=== PATIENT | female | born 1960 | race Caucasian/White ===

== ENCOUNTER → 2018-03-04 18:32 | Outpatient (REF) | payer OTHER, SELFPAY | LOC: LAB 18:32 | PROVIDERS: PCP Family Medicine; Visit Provider Dermatology MOHS-Micrographic Surgery | DX: Z48.817 Encounter for surgical aftercare following surgery on the skin and subcutaneous tissue (principal) | CPT/HCPCS: 87070; 87075; 87077; 87147; 87186; 87205 ==

== ENCOUNTER 2018-09-06 11:45 | Outpatient (RCR) | payer OTHER, SELFPAY ==
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
--- NOTE | 2018-04-13 10:48 | PT.OPPOC ---
Current Diagnoses Pain in left knee (04/13/18) Other specified postprocedural states (04/13/18) Provider Visit Care Team Role Provider Type Valarie Carbajal DO Primary Care Provider Physician Specialty: Family Practice Address: [address] [place] [address], [id number] Email: [email or web address] Will Haddad MD Attending Provider Non-Staff Specialty: Medical [facility] [place], [address] Email: Plan Of Care PT-OP-T Assessment and Plan Start: 04/13/18 08:11 Freq: Status: Active Protocol: Document 04/13/18 08:51 [facility] (Rec: 04/13/18 10:37 [facility] [id number]) Physical Therapy Assessment Rehab Potential Rehabilitation Potential Excellent Evaluation Complexity Number of Personal Factors/Comorbidities 3 or More Number of Body Systems Impaired 4 or More Clinical Presentation at Evaluation Evolving Impairments Impairments Balance Gait Pain Posture ROM Soft Tissue Mobility Strength Goals Three Impairment ROM Short Term Goal (STG) 0-130 ROM for improved gait & functional activities STG Duration 05/27/18 Concreter Goal (LTG) Pt will be able to have complete stability through her ROM as demonstrated by ability to ascend and descend 8 in stair with good mechanics & no pain. LTG Duration 07/11/18 Two Impairment Recreational activity limits Short Term Goal (STG) Pt will be able to bike to/ from work on her electric bike . STG Duration 05/27/18 Nursing Home Goal (LTG) Pt will be able to walk her typical 5 miles and be able to start a monitored crossfit program. LTG Duration 07/14/18 One Impairment strength Short Term Goal (STG) Indep with HEP STG Duration 05/27/18 Nursing Home Goal (LTG) Pt will have 5/5 LE strength B with good core stability when tested to allow pt to return to further recreational participation. LTG Duration 07/14/18 Assessment Summary Assessment Pt presents about 4 weeks s/p L knee medial & lateral menisectomy with impaired gait patterns, dec ability to participate in recreational activities, and overall limits in her daily ambulation & activities. Pt has hx of LBP which has limited her activity in her past and is likely contributing to her movement patterns. Physical Therapy Plan Frequency and Duration Frequency of Treatment 2x/Week Duration of Treatment 3 months Plan of Care Start Date 04/13/18 Plan of Care End Date 07/14/18 Therapeutic Interventions Therapeutic Interventions Aquatic Therapy Balance Training Gait Training Home Exercise Program Joint Mobilizations Manual Therapy Neuromuscular Re-education Self-Care/Home Management Soft Tissue Mobilization Taping Therapeutic Activities Therapeutic Exercises Modalities Cold Pack/Ice Massage Electric Stimulation Hot Packs Infrared Therapy Iontophoresis Ultrasound Next Visit Focus/Plan Next Note Type Treatment Note Next Visit Plan Abdominal series exercises, bike, leg press, review HEP & expand (mini squat, abdominal series, standing hip ext), STM quads Plan of Care Dates Plan of Care Start Date 04/13/18 Plan of Care End Date 07/14/18 Please Sign and Return: I have reviewed this Plan of Care and certify that the skilled therapy services above are required to meet the patient?s needs. Physician Signature Date Printed Name and Credentials Clinical Instructor Signature Printed Name and Credentials
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
--- NOTE | 2018-06-30 14:30 | PT.OPPOC ---
Current Diagnoses Pain in left knee (06/30/18) Other specified postprocedural states (06/30/18) Provider Visit Care Team Role Provider Type Valarie Carbajal DO Primary Care Provider Physician Specialty: Family Practice Address: [address] [place] [address], [id number] Email: [email or web address] Will Haddad MD Attending Provider Non-Staff Specialty: Medical [facility] [place], [address] Email: Plan Of Care PT-OP-T Assessment and Plan Start: 04/13/18 08:11 Freq: Status: Active Protocol: Document 06/30/18 13:01 [facility] (Rec: 06/30/18 13:47 [facility] [id number]) Physical Therapy Assessment Goals Three Impairment ROM Short Term Goal (STG) 0-130 ROM for improved gait & functional activities STG Duration achieved S[employer] Folding Supervisor Goal (LTG) Pt will be able to have complete stability through her ROM as demonstrated by ability to ascend and descend 8 in stair with good mechanics & no pain. LTG Duration 08/11/18-able to do 6 in Two Impairment Recreational activity limits Short Term Goal (STG) Pt will be able to bike to/ from work on her electric bike . STG Duration 05/27/18-has not used bike [facility]dc Goal (LTG) Pt will be able to walk her typical 5 miles and be able to start a monitored crossfit program. LTG Duration 08/14/18-able to do walking 1.5 miles One Impairment strength Short Term Goal (STG) Indep with HEP STG Duration 05/27/18-achieved advancing as needed [facility]dc Goal (LTG) Pt will have 5/5 LE strength B with good core stability when tested to allow pt to return to further recreational participation. LTG Duration 08/14/18-improving Assessment Summary Assessment Pt able to improve significant with gait and required cueing for arm swing to improve push off. Improved posture with cueing. Physical Therapy Plan Frequency and Duration Frequency of Treatment 2x/Week Duration of Treatment 2 months Plan of Care Start Date 06/30/18 Plan of Care End Date 08/31/18 Therapeutic Interventions Therapeutic Interventions Aquatic Therapy Balance Training Gait Training Home Exercise Program Joint Mobilizations Manual Therapy Neuromuscular Re-education Self-Care/Home Management Soft Tissue Mobilization Taping Therapeutic Activities Therapeutic Exercises Modalities Cold Pack/Ice Massage Electric Stimulation Hot Packs Infrared Therapy Iontophoresis Ultrasound Next Visit Focus/Plan Next Note Type Treatment Note Next Visit Plan Cont to work on stairs and higher level exercise Plan of Care Dates Plan of Care Start Date 06/30/18 Plan of Care End Date 08/31/18 Please Sign and Return: I have reviewed this Plan of Care and certify that the skilled therapy services above are required to meet the patient?s needs. Physician Signature Date Printed Name and Credentials Clinical Instructor Signature Printed Name and Credentials
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
== END 2019-02-04 15:27 | disposition home or self-care (01) ==
LOC: PHYS 11:45
PROVIDERS: PCP Family Medicine; Visit Provider Orthopaedic Surgery
DX: M25.562 Pain in left knee (principal); Z98.890 Other specified postprocedural states
CPT/HCPCS: 97010; 97014; 97110; 97112; 97113; 97116; 97140; 97162; 97530; G0283

== ENCOUNTER → 2018-10-26 12:07 | Outpatient (CLI) | payer OTHER, SELFPAY ==
--- NOTE | 2018-10-26 | DI.MG.S_ITS ---
BILATERAL DIGITAL SCREENING MAMMOGRAM 3D/2D WITH CAD: 10/26/2018 CLINICAL: Routine screening. Comparison is made to exams dated: 08/24/2017 mammogram, 06/23/2016 mammogram, and 06/19/2015 mammogram - [facility]. The tissue of both breasts is heterogeneously dense. This may lower the sensitivity of mammography. Current study was also evaluated with a Computer Aided Detection (CAD) system. No significant masses, calcifications, or other findings are seen in either breast. There has been no significant interval change. IMPRESSION: NEGATIVE There is no mammographic evidence of malignancy. A 1 year screening mammogram is recommended. This exam was interpreted at Station ID: [id number]. NOTE: For mammograms, a report in lay terms will be sent to the patient. Approximately 15% of breast malignancies will not be visualized mammographically. In the management of a palpable breast mass, a negative mammogram must not discourage biopsy of a clinically suspicious lesion. Electronically Signed By: Rickey giron/everardo:10/26/2018 17:54:20 letter sent: Normal Exam ACR BI-RADS Category 1: Negative 3341F
== END ==
DX: Z12.31 Encounter for screening mammogram for malignant neoplasm of breast (principal)
CPT/HCPCS: 77063; 77067

== ENCOUNTER → 2019-05-19 12:48 | Outpatient (CLI) | payer OTHER, SELFPAY | PROVIDERS: Visit Provider Physician Assistant | DX: R30.0 Dysuria (principal) | CPT/HCPCS: 87086 ==

== ENCOUNTER → 2020-03-21 17:35 | Outpatient (CLI) | payer OTHER, SELFPAY ==
--- NOTE | 2020-03-21 18:10 | DI.MG.S_ITS ---
Patient Name: FUNMILAYO GUIDRY date: 1960 Sex: F Attending Physician: Lesley Indications: Date: 03/21/2020 18:00 At the request of: NINI RAMÍREZ Procedure: MM screening mammo BI BILATERAL DIGITAL SCREENING MAMMOGRAM 3D/2D WITH CAD: 03/21/2020 CLINICAL: Routine screening. Comparison is made to exams dated: 10/26/2018 mammogram, 08/24/2017 mammogram, and 06/23/2016 mammogram - [facility]. There are scattered fibroglandular elements in both breasts. Current study was also evaluated with a Computer Aided Detection (CAD) system. No significant masses, calcifications, or other findings are seen in either breast. There has been no significant interval change. IMPRESSION: NEGATIVE There is no mammographic evidence of malignancy. A 1 year screening mammogram is recommended. This exam was interpreted at Station ID: [id number]. NOTE: For mammograms, a report in lay terms will be sent to the patient. Approximately 15% of breast malignancies will not be visualized mammographically. In the management of a palpable breast mass, a negative mammogram must not discourage biopsy of a clinically suspicious lesion. Electronically Signed By: Samara bran/everardo:03/22/2020 10:01:43 letter sent: Normal Exam ACR BI-RADS Category 1: Negative 3341F
== END ==
PROVIDERS: Referring Provider Family Medicine; Visit Provider Family Medicine
DX: Z12.31 Encounter for screening mammogram for malignant neoplasm of breast (principal)
CPT/HCPCS: 77063; 77067

== ENCOUNTER → 2020-05-10 16:00 | Outpatient (CLI) | payer OTHER, SELFPAY | PROVIDERS: Visit Provider Physician Assistant | DX: R30.0 Dysuria (principal) | CPT/HCPCS: 87077; 87086; 87186 ==

== ENCOUNTER → 2020-07-20 10:35 | Outpatient (CLI) | payer OTHER, SELFPAY ==
[2020-07-20] MEDS: COVID-19 VACC(MODERNA-1)/PF 100 MCG/0.5 ML VIAL IM (10:41)
== END ==
PROVIDERS: Visit Provider Internal Medicine
DX: Z23 Encounter for immunization (principal)
CPT/HCPCS: 0011A; 91301

== ENCOUNTER → 2020-08-16 10:27 | Outpatient (CLI) | payer OTHER, SELFPAY ==
[2020-08-16] MEDS: COVID-19 VACC #2, MRNA(MOD) 100 MCG/0.5 ML VIAL IM (10:33)
--- NOTE | 2020-08-16 11:27 | PC.NURSE ---
@1046 pt reports feeling light-headed; ambulated with SBA to recliner with unstable gait to dizziness, apple juice provided; VS @ 1048 124/77, HR 66, 93% RA VS @ 1056 seated 117/69, HR 73, 94% RA VS @ 1105 standing 113/72, HR 73 denies dizziness Pt escorted to private vehicle with spouse, denies dizziness upon ambulation to door
== END ==
PROVIDERS: Visit Provider Internal Medicine
DX: Z23 Encounter for immunization (principal)
CPT/HCPCS: 0012A; 91301

== ENCOUNTER → 2021-05-01 15:40 | Outpatient (CLI) | payer OTHER, SELFPAY ==
--- NOTE | 2021-05-01 | DI.MG.S_ITS ---
BILATERAL DIGITAL SCREENING MAMMOGRAM 3D/2D WITH CAD: 05/01/2021 CLINICAL: Routine screening. Comparison is made to exams dated: 03/21/2020 mammogram, 10/26/2018 mammogram, 08/24/2017 mammogram, 06/23/2016 mammogram, and 06/19/2015 mammogram - [facility]. There are scattered fibroglandular elements in both breasts. Current study was also evaluated with a Computer Aided Detection (CAD) system. No significant masses, calcifications, or other findings are seen in either breast. There has been no significant interval change. IMPRESSION: NEGATIVE There is no mammographic evidence of malignancy. A 1 year screening mammogram is recommended. This exam was interpreted at Station ID: [id number]. NOTE: For mammograms, a report in lay terms will be sent to the patient. Approximately 15% of breast malignancies will not be visualized mammographically. In the management of a palpable breast mass, a negative mammogram must not discourage biopsy of a clinically suspicious lesion. Electronically Signed By: Papo riley/everardo:05/02/2021 08:56:39 letter sent: Normal Exam ACR BI-RADS Category 1: Negative [id number]
== END ==
PROVIDERS: PCP Family Medicine; Referring Provider Family Medicine; Visit Provider Family Medicine
DX: Z12.31 Encounter for screening mammogram for malignant neoplasm of breast (principal)
CPT/HCPCS: 77063; 77067

== ENCOUNTER → 2022-03-01 14:51 | Outpatient (CLI) | payer OTHER, SELFPAY | PROVIDERS: PCP Family Medicine; Visit Provider Physician Assistant | DX: N34.3 Urethral syndrome, unspecified (principal) | CPT/HCPCS: 87077; 87086; 87186 ==

== ENCOUNTER 2022-05-14 18:06 | Emergency (ER) | payer OTHER, SELFPAY ==
[2022-05-14] VITALS (15 sets, daily range): BP systolic 117–172; BP diastolic 66–90; PULSE 54–65; RESP 12–32; TEMP 36.7; O2SAT 96–99; BMI 33.2
[2022-05-14 18:55] LABS: Add Manual Diff / Slide Review NO; Basophils Absolute Auto 0 /uL (0-100); Basophils Percent Auto 0.9 % (0-2); Eosinophils Absolute Auto 100 /uL (0-450); Eosinophils Percent Auto 3.1 % (2-4); Hematocrit 42.7 % (36-46); Hemoglobin 14.7 g/dL (12.0-16.0); Lymphocytes Absolute Auto 1200 /uL (1100-4500); Mean Corpuscular HGB Conc 34.4 % (30-36); Mean Corpuscular Hemoglobin 31.5 PG (26-34); Mean Corpuscular Volume 91.3 fL (80-100); Monocytes Absolute Auto 400 /uL (0-900); Monocytes Percent Auto 8.8 % (3-14); Neutrophils Absolute Auto 2600 /uL (1500-7000); Neutrophils Percent Auto 59.2 % (50-75); Platelet Count 159 X10^3/uL (150-400); Red Blood Cell Count 4.68 X10^6/uL (4.0-5.2); Red Cell Distribution Width 13.4 % (11.6-14.8); White Blood Cell Count 4.3 X10^3/uL (4.5-11.0)
[2022-05-14 19:16] LABS: Alanine Aminotransferase 17 IU/L (<35); Albumin 4.5 g/dL (3.5-5.0); Albumin Globulin Ratio 1.3 (1.0-2.8); Alkaline Phosphatase 56 U/L (38-126); Aspartate Aminotransferase 21 IU/L (14-36); BUN Creatinine Ratio 23.1 (6-22); Bilirubin Total 0.7 mg/dL (0.2-1.3); Blood Urea Nitrogen 21 mg/dL (7-17); Calcium 9.4 mg/dL (8.4-10.2); Carbon Dioxide 26 mmol/L (22-32); Chloride 103 mmol/L (98-107); Estimated Glomerular Filt Rate > 60 mL/min (>60); Globulin 3.4 g/dL (1.7-4.1); Glucose 83 mg/dL (80-110); HEMOLYSIS < 15 (0-50); Lipase 97 U/L (23-300); Potassium 3.8 mmol/L (3.4-5.1); Sodium 138 mmol/L (137-145); Total Protein 7.9 g/dL (6.3-8.2)
--- NOTE | 2022-05-14 19:24 | ED_ITS ---
HPI - Abdominal Pain General Chief Complaint: Abdominal Pain Stated Complaint: fever/galbladder pain x1 day Time Seen by Provider: 05/14/22 18:36 Source: patient Mode of arrival: Ambulatory History of Present Illness HPI narrative: Patient is a healthy 62-year-old female who presents with right upper quadrant discomfort and nausea. She says she has been feeling good for a while she has had recurrent UTIs. She is finishing up antibiotics for that. She went her business operations coordinator today who noticed that her gallbladder may be a little inflamed. She has been persistently nauseated without vomiting. No fever chills chest pain shortness of breath or back pain. She noticed that her stools were also like colored. She was instructed by her primary to come to the ED for further evaluation Related Data Home Medications Medication Instructions Recorded Confirmed levothyroxine 13 mcg capsule 13 mcg PO DAILY 09/22/18 05/10/20 Previous Rx's Medication Instructions Recorded albuterol sulfate 90 mcg/actuation 2 puff inhalation Q4-6H PRN 10/05/19 aerosol inhaler shortness of breath or wheezing #18 grams fluticasone propionate 110 1 puff inhalation BID #12 grams 10/31/19 mcg/actuation HFA aerosol inhaler (Flovent HFA) hydrocodone 5 mg-acetaminophen 325 1 tab PO Q6H PRN pain #10 tabs 05/14/22 mg tablet ondansetron 4 mg disintegrating 4 mg PO Q8H PRN nausea and 05/14/22 tablet vomiting #10 tabs Allergies Allergy/AdvReac Type Severity Reaction Status Date / Time No Known Drug Allergies Allergy Verified 03/01/22 14:50 Review of Systems Review of Systems Narrative: GENERAL: Denies chills, fatigue, malaise, fever, sweats, travel HEENT: Denies sinus pain, ear pain, sore throat, difficulty swallowing, neck pain RESPIRATORY: Denies dyspnea, cough, wheezing, hemoptysis, sputum. CARDIOVASCULAR: Denies chest pain, palpitations, orthopnea, edema GASTROINTESTINAL: See HPI : Denies dysuria, frequency, incontinence, hematuria, urinary retention, flank pain. MUSCULOSKELETAL: Denies weakness, joint pain, or bony pain SKIN: No rash, no erythema, no pruritus NEUROLOGIC: Denies weakness, dizziness, headache, numbness, change in speech, confusion PSYCHIATRIC: No concerning psychosocial issues. 12 point review of systems is negative except for those stated above and HPI Patient History Social History Smoking Status: Never smoker Smoking Status: Never smoker alcohol intake frequency: holidays/special occasions only Exam Initial Vital Signs Initial Vital Signs: Vital Signs Temperature 98.1 F 05/14/22 18:11 Pulse Rate 64 05/14/22 18:11 Respiratory Rate 18 05/14/22 18:11 Blood Pressure 117/72 05/14/22 18:11 Pulse Oximetry 99 05/14/22 18:11 Oxygen Delivery Method 05/14/22 18:11 GENERAL: Alert pleasant 62-year-old female and in no acute distress. HEENT: Head atraumatic,EOMI, pupils reactive, face symmetric, moist mucous membranes CARDIOVASCULAR: Regular rate and rhythm without murmurs, rubs or gallops. RESPIRATORY: Breath sounds equal bilaterally, no wheezes rales or rhonchi. ABDOMEN: Soft, mild right upper quadrant pain no guarding : No CVA tenderness EXTREMITIES: Normal range of motion, no clubbing or edema. Neurovascularly intact NEUROLOGICAL: Alert and oriented x4.Normal gait and speech. SKIN: Warm, dry, no laceration, no petechiae, no rashes or lesions. Course Orders Ordered: ED Orders 05/14/22 18:33 EKG-12 Lead Stat 05/14/22 18:43 Complete Blood Count AUTO DIFF Stat Comprehensive Metabolic Panel Stat Lipase Stat 05/14/22 19:26 US abdomen limited Stat Discontinued Medications Ondansetron HCl (Ondansetron 4 Mg/2 Ml Inj) 4 mg IV NOW ONE Stop: 05/14/22 19:27 Last Admin: 05/14/22 20:23 Dose: 4 mg Documented By: DAVEY Vital Signs Vital signs: Vital Signs - 8 hr 05/14/22 19:30 05/14/22 19:41 05/14/22 19:41 Pulse Rate 59 L 60 Respiratory Rate 19 28 H Blood Pressure 143/72 H Pulse Oximetry 98 98 05/14/22 20:00 05/14/22 20:00 05/14/22 20:21 Pulse Rate 55 L Respiratory Rate 22 Blood Pressure 142/77 H 128/66 Pulse Oximetry 99 05/14/22 20:21 05/14/22 20:30 05/14/22 20:41 Pulse Rate 54 L 55 L Respiratory Rate 32 H 12 Blood Pressure 144/79 H Pulse Oximetry 96 97 05/14/22 20:41 05/14/22 21:00 05/14/22 21:07 Pulse Rate 56 L 56 L Respiratory Rate 22 17 Blood Pressure 120/71 Pulse Oximetry 98 96 05/14/22 21:07 05/14/22 21:30 Pulse Rate 60 62 Respiratory Rate Blood Pressure Pulse Oximetry 96 96 MDM - Abdominal Pain Lab Data Result diagrams: 05/14/22 18:43 05/14/22 18:43 Labs: Lab Results 05/14/22 05/14/22 Range/Units 18:43 18:43 WBC 4.3 L (4.5-11.0) X10^3/uL RBC 4.68 (4.0-5.2) X10^6/uL Hgb 14.7 (12.0-16.0) g/dL Hct 42.7 (36-46) % MCV 91.3 (80-100) fL MCH 31.5 (26-34) PG MCHC 34.4 (30-36) % RDW 13.4 (11.6-14.8) % Plt Count 159 (150-400) X10^3/uL Neut % (Auto) 59.2 (50-75) % Lymph % (Auto) 28.0 (25-40) % Pender % (Auto) 8.8 (3-14) % Eos % (Auto) 3.1 (2-4) % Baso % (Auto) 0.9 (0-2) % Neut # (Auto) 2600 (7255-4335) /uL Lymph # (Auto) 1200 (1009-9961) /uL Pender # (Auto) 400 (0-900) /uL Eos # (Auto) 100 (0-450) /uL Baso # (Auto) 0 (0-100) /uL Sodium 138 (137-145) mmol/L Potassium 3.8 (3.4-5.1) mmol/L Chloride 103 (98-107) mmol/L Carbon Dioxide 26 (22-32) mmol/L BUN 21 H (7-17) mg/dL Creatinine 0.91 (0.52-1.04) mg/dL Estimated GFR > 60 (>60) mL/min BUN/Creatinine Ratio 23.1 H (6-22) Glucose 83 (80-110) mg/dL Calcium 9.4 (8.4-10.2) mg/dL Total Bilirubin 0.7 (0.2-1.3) mg/dL AST 21 (14-36) IU/L ALT 17 (<35) IU/L Alkaline Phosphatase 56 (38-126) U/L Total Protein 7.9 (6.3-8.2) g/dL Albumin 4.5 (3.5-5.0) g/dL Globulin 3.4 (1.7-4.1) g/dL Albumin/Globulin Ratio 1.3 (1.0-2.8) Lipase 97 (23-300) U/L Point of care testing: Urine Dip Bedside Urine Glucose Negative Bedside Urine Bilirubin - Negative Bedside Urine Ketone - Negative Urine Specific [place] 1.020 Bedside Urine Occult Blood - Negative Bedside Urine pH 6.0 Bedside Urine Protein - Negative Bedside Urine Urobilinogen - Negative Bedside Urine Nitrite - Negative Bedside Urine Leukocytes - Negative Esterase Imaging Data US - abdomen: Radiologist's Impression: LAYNE Zuluaga [id number] Ultrasound Report Signed Patient: Martha Veras MR#: [id number] : 1960 Acct:[id number] Age/Sex: 62 / F Date of Service: 05/14/22 Loc: ED Accession Number: [id number] ?? Procedure: US abdomen limited Ordering Provider: Mary Grace Haywood D.O. PROCEDURE: US ABDOMEN LIMITED ? INDICATIONS:? RUQ PAIN ? TECHNIQUE:? Real-time focused scanning was performed of the abdomen, with image docume ntation.? ? COMPARISON:? None. ? FINDINGS:? ? There is a large thin walled anechoic cyst within the right hepatic lobe measuring up to 9.3 x 7.6 x 8.9 cm. ? Gallbladder demonstrates a shadowing gallstone measuring up to 1.6 cm in the region of the gallbladder neck which appears nonmobile.? No gallbladder wall thickening or pericholecystic fluid.? Patient was reportedly tender on examination. ? No intra or extrahepatic biliary ductal dilatation.? The distal common bile duct was not well seen. ? Pancreas was not well visualized sonographically. ? IMPRESSION:? ? 1. Cholelithiasis, with a nonmobile stone demonstrated, but without definite evidence of acute cholecystitis. ? 2. Large hepatic cyst may represent sequelae of prior infection. ? ? Dictated by: Jose Luis Farris M.D. on 05/14/2022 at 21:09 ? ? Approved by: Jose Luis Farris M.D. on 05/14/2022 at 21:11 ? ECG Data Interpretation: Sinus rate 61 year normal 152 QRS [address] changes no T-wave inversions mild artifact noted MDM Narrative Medical decision making narrative: Patient having some mild nausea ongoing and some right upper quadrant pain today is. She is found have a non mobile gallstone but no signs of obstruction or cholelithiasis or acute cholangitis. She overall appears well. At this time recommend elective outpatient treatment and surgery. Acute coronary syndrome h as been ruled out EKG troponin are negative. Discharge Plan Departure Patient Disposition: Home Clinical Impression: Cholelithiasis Instructions: Gallstones Activity Restrictions/Additional Instructions: *You have been diagnosed with gallstones *What to do: At this time here gallbladder will need to be removed. Recommend that he follow up with surgery and have electively removed. Recommend that you follow low-fat diet as well. *Continue to take medications as directed--> SENT TO [facility] Zofran 4 mg every 8 hours if needed for nausea or vomiting [place] 1 tablet every 6 hours if needed for severe pain *Follow up with your primary care provider in 2-3 days or call [phone] *Return to ER if you should have increased pain fever persistent vomiting or any new, worsening or concerning symptoms CONTROLLED SUBSTANCE DISCHARGE (Narcotoic/benzodiazepine/Flexeril/Phenergan) 1. You have been prescribed narcotic medications, it does have acetaminophen/Tylenol/paracetamol in it, DO NOT TAKE MORE THAN 4,00mg in 24 hours of Tylenol. TRAMADOL DOES NOT CONTAIN TYLENOL 2. Please understand that we cannot provide further refills of narcotics, benzodiazepines or controlled substances through the ED and her pain management will need to be through your provider. 3. While on these medications you cannot drive or operate heavy machinery. 4. You cannot sign legal documents or perform any duties such as this. 5. As long as you're taking opiate pain medications he should also be taking a stool softener such as Colace, Dulcolax, MiraLAX or prune juice, to help avoid constipation. Prescriptions: New hydrocodone-acetaminophen 5-325 mg tablet 1 tab PO Q6H PRN (Reason: pain) Qty: 10 0RF ondansetron 4 mg tablet,disintegrating 4 mg PO Q8H PRN (Reason: nausea and vomiting) Qty: 10 0RF No Action levothyroxine 13 mcg capsule 13 mcg PO DAILY albuterol sulfate 90 mcg/actuation HFA aerosol inhaler 2 puff INHALATION Q4-6H PRN (Reason: shortness of breath or wheezing) Qty: 18 0RF Flovent HFA 110 mcg/actuation HFA aerosol inhaler 1 puff INHALATION BID Qty: 12 0RF Rx Instructions: MUST ESTABLISH WITH NEW PRIMARY CARE PHYSICIAN PRIOR TO FURTHER REFILLS Referrals: Salima Sutton MD [Primary Care Provider] - Visit Report Forms: Patient Portal/API
--- NOTE | 2022-05-14 19:26 | DI.US.S_ITS ---
PROCEDURE: US ABDOMEN LIMITED INDICATIONS: RUQ PAIN TECHNIQUE: Real-time focused scanning was performed of the abdomen, with image documentation. COMPARISON: None. FINDINGS: There is a large thin walled anechoic cyst within the right hepatic lobe measuring up to 9.3 x 7.6 x 8.9 cm. Gallbladder demonstrates a shadowing gallstone measuring up to 1.6 cm in the region of the gallbladder neck which appears nonmobile. No gallbladder wall thickening or pericholecystic fluid. Patient was reportedly tender on examination. No intra or extrahepatic biliary ductal dilatation. The distal common bile duct was not well seen. Pancreas was not well visualized sonographically. IMPRESSION: 1. Cholelithiasis, with a nonmobile stone demonstrated, but without definite evidence of acute cholecystitis. 2. Large hepatic cyst may represent sequelae of prior infection. Dictated by: Jose Luis Farris M.D. on 05/14/2022 at 21:09 Approved by: Jose Luis Farris M.D. on 05/14/2022 at 21:11
[2022-05-14] MEDS: ONDANSETRON 4 MG/2 ML INJ IV (20:23)
== END 2022-05-14 22:07 | disposition home or self-care (01) ==
PROVIDERS: Emergency Provider Emergency Medicine; PCP Family Medicine
DX: K80.20 Calculus of gallbladder without cholecystitis without obstruction (principal); R10.11 Right upper quadrant pain
CPT/HCPCS: 36415; 76705; 80053; 81003; 83690; 85025; 93005; 96374; 99284; J2405

== ENCOUNTER → 2023-05-14 06:52 | Outpatient (CLI) | payer OTHER, SELFPAY | PROVIDERS: PCP Obstetrics & Gynecology; Referring Provider Internal Medicine; Visit Provider Internal Medicine | DX: R06.00 Dyspnea, unspecified (principal); Z86.16 Personal history of COVID-19; J98.8 Other specified respiratory disorders | CPT/HCPCS: 94060; 94726; 94729 ==

== ENCOUNTER → 2023-07-28 15:36 | Outpatient (CLI) | payer OTHER, SELFPAY ==
--- NOTE | 2023-07-28 15:40 | DI.RAD.S_ITS ---
PROCEDURE: XR ANKLE LT MIN 3V INDICATIONS: Left ankle tenderness over lateral anterior malleolus TECHNIQUE: 3 views of the ankle were acquired. COMPARISON: None. FINDINGS: Bones: Partially visualized fracture in the base of the 5th metatarsal. Soft tissue swelling of the ankle. Ankle mortise is normally aligned. Soft tissues: Soft tissue swelling of the ankle. IMPRESSION: 1. Suggestion of of a fracture of the base of the 5th metatarsal, partially visualized on these images of the ankle 2. Soft tissue swelling of the ankle Dictated by: Campbell Ying M.D. on 07/28/2023 at 16:37 Approved by: Campbell Ying M.D. on 07/28/2023 at 16:40
--- NOTE | 2023-07-28 15:40 | DI.RAD.S_ITS ---
PROCEDURE: XR FOOT LT MIN 3V INDICATIONS: Left proximal, lateral foot tenderness TECHNIQUE: 3 views of the foot were acquired. COMPARISON: None. FINDINGS: Bones: Minimally displaced fracture of the base of the 5th metatarsal is noted. Soft tissues: Soft tissue swelling of the ankle noted. IMPRESSION: Minimally displaced fracture of the base of the 5th metatarsal Dictated by: Campbell Ying M.D. on 07/28/2023 at 16:40 Approved by: Campbell Ying M.D. on 07/28/2023 at 16:41
== END ==
LOC: RAD 15:38
PROVIDERS: PCP Obstetrics & Gynecology; Referring Provider Physician Assistant; Visit Provider Physician Assistant
DX: S92.355A Nondisplaced fracture of fifth metatarsal bone, left foot, initial encounter for closed fracture (principal); M25.572 Pain in left ankle and joints of left foot; M79.672 Pain in left foot; M79.89 Other specified soft tissue disorders
CPT/HCPCS: 73610; 73630

== ENCOUNTER → 2023-08-24 15:46 | Outpatient (CLI) | payer OTHER, SELFPAY ==
[2023-08-24 17:34] LABS: Influenza A - CEPHEID Flu A NEGATIVE (NEGATIVE); Influenza B - CEPHEID Flu B NEGATIVE (NEGATIVE); Respiratory Syncytial Virus Negative (Negative)
[2023-08-24 17:41] LABS: COVID-19 CEPHEID 4-PLEX PCR Negative (Negative)
== END ==
PROVIDERS: PCP Obstetrics & Gynecology; Visit Provider Nurse Practitioner Family
DX: R05.1 Acute cough (principal)
CPT/HCPCS: 0241U

== ENCOUNTER 2023-08-24 19:08 | Emergency (ER) | payer OTHER, SELFPAY ==
[2023-08-24] VITALS (11 sets, daily range): BP systolic 128–141; BP diastolic 69–86; PULSE 103–112; RESP 12–26; TEMP 37.4; O2SAT 93–97; BMI 30.5
--- NOTE | 2023-08-24 19:26 | DI.US.S_ITS ---
PROCEDURE: US PERIPH VENOUS LOW EXTREM LT INDICATIONS: CALF PAIN. RECENT FOOT FRACTURE AND RECENT TRAVEL TECHNIQUE: Real-time imaging, as well as color and pulse Doppler interrogation, were performed of the lower extremity deep veins from the inguinal ligament to the popliteal fossa, with documentation of the visualized calf veins. COMPARISON: None. FINDINGS: There is an occlusive thrombus in the superficial femoral vein and popliteal vein. Additionally, there is an occlusive thrombus in 1 of the 2 posterior tibial veins and both of the peroneal veins. IMPRESSION: Left lower extremity occlusive thrombus in the superficial femoral and popliteal vein as well as the calf veins as detailed above. Findings were communicated to ordering ED provider by Dr. Lackey at 8:50 p.m. On 08/24/2023. Approved by: Nikia Lackey M.D. on 08/24/2023 at 21:00
[2023-08-24 19:45] LABS: Add Manual Diff / Slide Review NO; Basophils Absolute Auto 0 /uL (0-100); Basophils Percent Auto 0.4 % (0-2); Eosinophils Absolute Auto 0 /uL (0-450); Eosinophils Percent Auto 0.1 % (2-4); Hematocrit 38.1 % (36-46); Hemoglobin 13.2 g/dL (12.0-16.0); Lymphocytes Absolute Auto 600 /uL (1100-4500); Lymphocytes Percent Auto 4.9 % (25-40); Mean Corpuscular HGB Conc 34.6 % (30-36); Mean Corpuscular Hemoglobin 31.3 PG (26-34); Mean Corpuscular Volume 90.6 fL (80-100); Monocytes Absolute Auto 1000 /uL (0-900); Monocytes Percent Auto 8.6 % (3-14); Neutrophils Absolute Auto 9900 /uL (1500-7000); Platelet Count 197 X10^3/uL (150-400); Red Blood Cell Count 4.21 X10^6/uL (4.0-5.2); Red Cell Distribution Width 13.3 % (11.6-14.8); White Blood Cell Count 11.5 X10^3/uL (4.5-11.0)
[2023-08-24 19:48] LABS: INR 1.4 (0.9-1.3); Prothrombin Time 16.3 SECONDS (9.4-12.5)
[2023-08-24 19:52] LABS: Lactate (Lactic Acid) 0.8 mmol/L (0.7-2.1)
[2023-08-24 19:54] LABS: Alanine Aminotransferase 15 IU/L (<35); Albumin 3.8 g/dL (3.5-5.0); Albumin Globulin Ratio 1.2 (1.0-2.8); Alkaline Phosphatase 63 U/L (38-126); Aspartate Aminotransferase 21 IU/L (14-36); BUN Creatinine Ratio 16.7 (6-22); Bilirubin Total 1.2 mg/dL (0.2-1.3); Blood Urea Nitrogen 13 mg/dL (7-17); Calcium 8.9 mg/dL (8.4-10.2); Carbon Dioxide 22 mmol/L (22-32); Chloride 102 mmol/L (98-107); Estimated Glomerular Filt Rate > 60 mL/min (>60); Globulin 3.2 g/dL (1.7-4.1); Glucose 120 mg/dL (80-110); HEMOLYSIS < 15 (0-50); Potassium 3.6 mmol/L (3.4-5.1); Sodium 134 mmol/L (137-145)
--- NOTE | 2023-08-24 19:59 | ED_ITS ---
HPI - SOB/Dyspnea <Tamar Griffin MD - Last Filed: 08/25/23 18:33> General Chief Complaint: Shortness of Breath/Dyspnea Stated Complaint: SOB/lt leg/post foot fx/states poss blood clot Time Seen by Provider: 08/24/23 19:27 Source: patient Mode of arrival: Wheelchair History of Present Illness HPI Narrative: 63-year-old female with history of insulin resistance and hypothyroidism presents by private vehicle from home for 1 week of gradually worsening left calf pain and shortness of breath. Approximately 1.5 weeks ago patient flew back to the [facility] from [facility]. She is using a walking boot on her left-hand side due to a toe fracture. She states that her left leg is throbbing and progressively more painful, and so today she decided to seek evaluation in the emergency department. Related Data Home Medications Medication Instructions Recorded Confirmed levothyroxine 13 mcg capsule 88 mcg PO DAILY 05/01/23 08/24/23 estradiol 0.01% (0.1 mg/gram) vaginal 08/24/23 08/24/23 vaginal cream tirzepatide 5 mg/0.5 mL mg SUBCUT 08/24/23 08/24/23 subcutaneous pen injector (Mounjaro) levothyroxine 88 mcg tablet 88 mcg PO DAILY 08/25/23 08/25/23 Previous Rx's Medication Instructions Recorded benzonatate 100 mg capsule 200 mg (2 x 100 mg) PO BID PRN 08/24/23 cough #20 caps Allergies Allergy/AdvReac Type Severity Reaction Status Date / Time No Known Drug Allergies Allergy Verified 08/24/23 19:19 Review of Systems <Tamar Griffin MD - Last Filed: 08/25/23 18:33> Review of Systems Narrative: Negative except as noted above Patient History <Tamar Griffin MD - Last Filed: 08/25/23 18:33> Social History Smoking Status: Never smoker Smoking Status: Never smoker alcohol intake frequency: holidays/special occasions only Exam <Tamar Griffin MD - Last Filed: 08/25/23 18:33> Initial Vital Signs Initial Vital Signs: Vital Signs Temperature 99.4 F 08/24/23 19:11 Pulse Rate 111 H 08/24/23 19:11 Respiratory Rate 16 08/24/23 19:11 Blood Pressure 128/69 08/24/23 19:11 Pulse Oximetry 94 08/24/23 19:11 Oxygen Delivery Method Room Air 08/24/23 19:11 Const: Awake, alert, no acute distress, nontoxic appearing Cardiac: Tachycardia, regular rhythm RESP: unlabored, clear bilaterally, no wheezing MSK: mildly increased size LLE compared to RLE. Sensation intact, equal Skin: Warm, Dry, intact, no rashes Neuro: AO x3, CN II-XII grossly intact, moves all extremities Psych: affect normal, mood normal, not suicidal, not homicidal <Jeremy Patricia MD - Last Filed: 08/25/23 19:05> Initial Vital Signs Initial Vital Signs: Vital Signs Temperature 99.4 F 08/24/23 19:11 Pulse Rate 111 H 08/24/23 19:11 Respiratory Rate 16 08/24/23 19:11 Blood Pressure 128/69 08/24/23 19:11 Pulse Oximetry 94 08/24/23 19:11 Oxygen Delivery Method Room Air 08/24/23 19:11 Course <Tamar Griffin MD - Last Filed: 08/25/23 18:33> Orders Ordered: ED Orders 08/25/23 13:48 COVID19 -Nasal RAPID Stat 08/25/23 14:49 EC echo limited Stat Discontinued Medications Enoxaparin Sodium (Enoxaparin 40 Mg/0.4 Ml Syringe) 140 mg 1.5 mg/kg (140 mg) SUBCUT DAILY COUNT INCLUDES THE [facility] Last Admin: 08/24/23 22:58 Dose: 140 mg Documented By: MONTY Enoxaparin Sodium (Enoxaparin 100 Mg/Ml Syringe) 90 mg SUBCUT Q12H COUNT INCLUDES THE [facility] Last Admin: 08/25/23 09:45 Dose: Not Given Documented By: RLS Enoxaparin Sodium (Enoxaparin 100 Mg/Ml Syringe) 90 mg SUBCUT Q12H COUNT INCLUDES THE [facility] Last Admin: 08/25/23 09:39 Dose: 90 mg Documented By: AGUS Heparin Sodium (Porcine) (Heparin 5,000 Unit/Ml Vial) 7,500 unit 80 unit/kg (7500 unit) IV NOW ONE Stop: 08/24/23 20:46 Last Admin: 08/24/23 20:59 Dose: 7,500 unit Documented By: MONTY Heparin Sodium/Dextrose (Heparin Drip) 25,000 unit in 500 mls @ 22.535 mls/hr IV CONT AVELINO; Protocol Last Titration: 08/25/23 10:04 Dose: Infused Documented By: AGUS Co-signed By: JUNA DIEGO Titration: 08/24/23 22:22 Dose: 0 units/kg/hr, 0 mls/hr Documented By: MONTY Co-signed By: NABEEL Admin: 08/24/23 20:59 Dose: 12 units/kg/hr, 22.535 mls/hr Documented By: BB Co-signed By: AGUS(2) Sodium Chloride (Normal Saline 0.9%) 1,000 mls @ 500 mls/hr IV BOLUS ONE Stop: 08/25/23 18:50 Last Titration: 08/25/23 17:26 Dose: 500 mls/hr Levothyroxine Sodium (Levothyroxine 88 Mcg Tablet) 88 mcg PO NOW ONE Stop: 08/25/23 13:02 Last Admin: 08/25/23 13:45 Dose: 88 mcg Documented By: SHASHA Vital Signs Vital signs: Vital Signs - 8 hr 08/25/23 11:30 08/25/23 11:30 08/25/23 12:00 Pulse Rate 96 H Respiratory Rate Blood Pressure 105/63 96/63 Pulse Oximetry 96 Oxygen Delivery Method Oxygen Flow Rate 08/25/23 12:00 08/25/23 12:30 08/25/23 12:30 Pulse Rate 96 H 92 H Respiratory Rate Blood Pressure 100/62 Pulse Oximetry 96 96 Oxygen Delivery Method Oxygen Flow Rate 08/25/23 13:00 08/25/23 13:00 08/25/23 13:30 Pulse Rate 92 H Respiratory Rate Blood Pressure 96/65 98/64 Pulse Oximetry 96 Oxygen Delivery Method Oxygen Flow Rate 08/25/23 13:30 08/25/23 14:00 08/25/23 14:00 Pulse Rate 94 H 93 H Respiratory Rate 24 Blood Pressure 97/63 Pulse Oximetry 97 96 Oxygen Delivery Method Nasal Cannula Oxygen Flow Rate 2 08/25/23 14:30 08/25/23 14:30 08/25/23 15:00 Pulse Rate 91 H 97 H Respiratory Rate Blood Pressure 102/63 Pulse Oximetry 96 96 Oxygen Delivery Method Oxygen Flow Rate 08/25/23 15:00 08/25/23 15:30 08/25/23 15:30 Pulse Rate 96 H Respiratory Rate Blood Pressure 101/65 104/71 Pulse Oximetry 97 Oxygen Delivery Method Nasal Cannula Oxygen Flow Rate 2 08/25/23 15:40 08/25/23 15:50 08/25/23 16:00 Pulse Rate 95 H 95 H Respiratory Rate Blood Pressure 88/52 L Pulse Oximetry 96 97 Oxygen Delivery Method Nasal Cannula Oxygen Flow Rate 2 08/25/23 16:00 08/25/23 16:10 08/25/23 16:14 Pulse Rate 92 H 96 H Respiratory Rate 22 Blood Pressure 103/64 Pulse Oximetry 97 97 Oxygen Delivery Method Nasal Cannula Oxygen Flow Rate 2 08/25/23 16:14 08/25/23 16:20 08/25/23 16:30 Pulse Rate 96 H 92 H 91 H Respiratory Rate Blood Pressure Pulse Oximetry 98 97 97 Oxygen Delivery Method Oxygen Flow Rate 08/25/23 16:30 08/25/23 16:40 08/25/23 16:50 Pulse Rate 91 H 95 H Respiratory Rate Blood Pressure 103/61 Pulse Oximetry 97 98 Oxygen Delivery Method Oxygen Flow Rate 08/25/23 17:00 08/25/23 17:01 08/25/23 17:01 Pulse Rate 95 H 94 H Respiratory Rate 22 Blood Pressure 96/63 Pulse Oximetry 97 96 Oxygen Delivery Method Nasal Cannula Oxygen Flow Rate 2 <Jeremy Patricia MD - Last Filed: 08/25/23 19:05> Orders Ordered: ED Orders 08/25/23 13:48 COVID19 -Nasal RAPID Stat 08/25/23 14:49 EC echo limited Stat Discontinued Medications Enoxaparin Sodium (Enoxaparin 40 Mg/0.4 Ml Syringe) 140 mg 1.5 mg/kg (140 mg) SUBCUT DAILY COUNT INCLUDES THE [facility] Last Admin: 08/24/23 22:58 Dose: 140 mg Documented By: BB Enoxaparin Sodium (Enoxaparin 100 Mg/Ml Syringe) 90 mg SUBCUT Q12H COUNT INCLUDES THE [facility] Last Admin: 08/25/23 09:45 Dose: Not Given Documented By: RLS Enoxaparin Sodium (Enoxaparin 100 Mg/Ml Syringe) 90 mg SUBCUT Q12H COUNT INCLUDES THE [facility] Last Admin: 08/25/23 09:39 Dose: 90 mg Documented By: RLS Heparin Sodium (Porcine) (Heparin 5,000 Unit/Ml Vial) 7,500 unit 80 unit/kg (7500 unit) IV NOW ONE Stop: 08/24/23 20:46 Last Admin: 08/24/23 20:59 Dose: 7,500 unit Documented By: MONTY Heparin Sodium/Dextrose (Heparin Drip) 25,000 unit in 500 mls @ 22.535 mls/hr IV CONT AVELINO; Protocol Last Titration: 08/25/23 10:04 Dose: Infused Documented By: AGUS Co-signed By: JUAN DIEGO Titration: 08/24/23 22:22 Dose: 0 units/kg/hr, 0 mls/hr Documented By: MONTY Co-signed By: NABEEL Admin: 08/24/23 20:59 Dose: 12 units/kg/hr, 22.535 mls/hr Documented By: MONTY Co-signed By: AGUS(2) Sodium Chloride (Normal Saline 0.9%) 1,000 mls @ 500 mls/hr IV BOLUS ONE Stop: 08/25/23 18:50 Last Titration: 08/25/23 17:26 Dose: 500 mls/hr Levothyroxine Sodium (Levothyroxine 88 Mcg Tablet) 88 mcg PO NOW ONE Stop: 08/25/23 13:02 Last Admin: 08/25/23 13:45 Dose: 88 mcg Documented By: SHASHA Consultations Consultation #1: D/W public housing manager at , Dr Rubin, hemodynamically stable, low O2 requirement, no RV strain, not thrombectomy candidate Vital Signs Vital signs: Vital Signs - 8 hr 08/25/23 11:30 08/25/23 11:30 08/25/23 12:00 Pulse Rate 96 H Respiratory Rate Blood Pressure 105/63 96/63 Pulse Oximetry 96 Oxygen Delivery Method Oxygen Flow Rate 08/25/23 12:00 08/25/23 12:30 08/25/23 12:30 Pulse Rate 96 H 92 H Respiratory Rate Blood Pressure 100/62 Pulse Oximetry 96 96 Oxygen Delivery Method Oxygen Flow Rate 08/25/23 13:00 08/25/23 13:00 08/25/23 13:30 Pulse Rate 92 H Respiratory Rate Blood Pressure 96/65 98/64 Pulse Oximetry 96 Oxygen Delivery Method Oxygen Flow Rate 08/25/23 13:30 08/25/23 14:00 08/25/23 14:00 Pulse Rate 94 H 93 H Respiratory Rate 24 Blood Pressure 97/63 Pulse Oximetry 97 96 Oxygen Delivery Method Nasal Cannula Oxygen Flow Rate 2 08/25/23 14:30 08/25/23 14:30 08/25/23 15:00 Pulse Rate 91 H 97 H Respiratory Rate Blood Pressure 102/63 Pulse Oximetry 96 96 Oxygen Delivery Method Oxygen Flow Rate 08/25/23 15:00 08/25/23 15:30 08/25/23 15:30 Pulse Rate 96 H Respiratory Rate Blood Pressure 101/65 104/71 Pulse Oximetry 97 Oxygen Delivery Method Nasal Cannula Oxygen Flow Rate 2 08/25/23 15:40 08/25/23 15:50 08/25/23 16:00 Pulse Rate 95 H 95 H Respiratory Rate Blood Pressure 88/52 L Pulse Oximetry 96 97 Oxygen Delivery Method Nasal Cannula Oxygen Flow Rate 2 08/25/23 16:00 08/25/23 16:10 08/25/23 16:14 Pulse Rate 92 H 96 H Respiratory Rate 22 Blood Pressure 103/64 Pulse Oximetry 97 97 Oxygen Delivery Method Nasal Cannula Oxygen Flow Rate 2 08/25/23 16:14 08/25/23 16:20 08/25/23 16:30 Pulse Rate 96 H 92 H 91 H Respiratory Rate Blood Pressure Pulse Oximetry 98 97 97 Oxygen Delivery Method Oxygen Flow Rate 08/25/23 16:30 08/25/23 16:40 08/25/23 16:50 Pulse Rate 91 H 95 H Respiratory Rate Blood Pressure 103/61 Pulse Oximetry 97 98 Oxygen Delivery Method Oxygen Flow Rate 08/25/23 17:00 08/25/23 17:01 08/25/23 17:01 Pulse Rate 95 H 94 H Respiratory Rate 22 Blood Pressure 96/63 Pulse Oximetry 97 96 Oxygen Delivery Method Nasal Cannula Oxygen Flow Rate 2 MDM - SOB/Dyspnea <Tamar Griffin MD - Last Filed: 08/25/23 18:33> Differential Diagnosis Differential diagnosis: Likely acute exacerbation of chronic obstructive airways disease, congestive heart failure and community acquired pneumonia Lab Data 08/24/23 19:30 08/24/23 19:30 Labs: Lab Results 08/24/23 08/25/23 08/25/23 Range/Units 19:30 05:41 13:57 WBC 11.5 H (4.5-11.0) X10^3/uL RBC 4.21 (4.0-5.2) X10^6/uL Hgb 13.2 (12.0-16.0) g/dL Hct 38.1 (36-46) % MCV 90.6 (80-100) fL MCH 31.3 (26-34) PG MCHC 34.6 (30-36) % RDW 13.3 (11.6-14.8) % Plt Count 197 (150-400) X10^3/uL Neut % (Auto) 86.0 H (50-75) % Lymph % (Auto) 4.9 L (25-40) % Terry % (Auto) 8.6 (3-14) % Eos % (Auto) 0.1 L (2-4) % Baso % (Auto) 0.4 (0-2) % Neut # (Auto) 9900 H (0993-6905) /uL Lymph # (Auto) 600 L (2960-3462) /uL Terry # (Auto) 1000 H (0-900) /uL Eos # (Auto) 0 (0-450) /uL Baso # (Auto) 0 (0-100) /uL PT 16.3 H (9.4-12.5) SECONDS INR 1.4 H (0.9-1.3) D-Dimer 9853 H (<500) ng/ml Sodium 134 L (137-145) mmol/L Potassium 3.6 (3.4-5.1) mmol/L Chloride 102 (98-107) mmol/L Carbon Dioxide 22 (22-32) mmol/L BUN 13 (7-17) mg/dL Creatinine 0.78 (0.52-1.04) mg/dL Estimated GFR > 60 (>60) mL/min BUN/Creatinine Ratio 16.7 (6-22) Glucose 120 H (80-110) mg/dL Lactate 0.8 (0.7-2.1) mmol/L Calcium 8.9 (8.4-10.2) mg/dL Total Bilirubin 1.2 (0.2-1.3) mg/dL AST 21 (14-36) IU/L ALT 15 (<35) IU/L Alkaline Phosphatase 63 (38-126) U/L Troponin I < 0.012 < 0.012 (0.01-0.034) ng/mL NT-Pro-B Natriuret Pep 299 H (<125) pg/mL Total Protein 7.0 (6.3-8.2) g/dL Albumin 3.8 (3.5-5.0) g/dL Globulin 3.2 (1.7-4.1) g/dL Albumin/Globulin Ratio 1.2 (1.0-2.8) SARS-CoV-2 (PCR) Negative (Negative) Urine Dip Bedside Urine Glucose Negative Bedside Urine Bilirubin - Negative Bedside Urine Ketone +/- 5 Urine Specific [place] 1.025 Bedside Urine Occult Blood +/- Bedside Urine pH 6.0 Bedside Urine Protein + 30 Bedside Urine Urobilinogen - Negative Bedside Urine Nitrite - Negative Bedside Urine Leukocytes - Negative Esterase ECG Data Interpretation: Sinus tachycardia 108 beats per minute. T-wave inversions lead 3, normal axis, normal intervals MDM Narrative Medical decision making narrative: Well-appearing patient with calf pain and shortness of breath after international travel. Left lower extremity does appear to be somewhat larger in size and right lower extremity, however this is minimal. Tachycardic on exam, lungs are clear to auscultation bilaterally, saturating well on room air, speaking in complete sentences without effort. Laboratory work is reviewed. Significant elevation in D-dimer. Plan to order CT angio. Preliminary review of ultrasound of the lower extremity shows occlusive DVT. Preliminary review of CT shows extensive pulmonary emboli with extension into the saddle. Call placed to facility with interventional radiology to see if patient is a potential candidate for thrombectomy. Patient has been advised of lab and imaging results as well as the diagnosis of pulmonary embolism and DVT. Patient is still tachycardic at a rate of 100-110 beats per minute, however blood pressure is stable, saturating well on room air, comfortable in ED bed. Plan to start heparin bolus and drip. [id number] -spoke with Dr. Chopra of [facility], who reviewed images. Based on patient's normal troponin, relatively low BNP, as well as reassuring vital signs recommends anticoagulation with Lovenox, otherwise patient has few indications for thrombectomy, however she will reach out to their interventional team to see if they would like to do a mechanical thrombectomy. Dr. Chopra stated that interventional team also agrees that patient is a good candidate for thrombectomy. Unfortunately there are no available med/tele beds available for the patient, she will continue to board in the emergency department until an open bed is available. <Jeremy Patricia MD - Last Filed: 08/25/23 19:05> Lab Data Labs: Lab Results 08/24/23 08/25/23 08/25/23 Range/Units 19:30 05:41 13:57 WBC 11.5 H (4.5-11.0) X10^3/uL RBC 4.21 (4.0-5.2) X10^6/uL Hgb 13.2 (12.0-16.0) g/dL Hct 38.1 (36-46) % MCV 90.6 (80-100) fL MCH 31.3 (26-34) PG MCHC 34.6 (30-36) % RDW 13.3 (11.6-14.8) % Plt Count 197 (150-400) X10^3/uL Neut % (Auto) 86.0 H (50-75) % Lymph % (Auto) 4.9 L (25-40) % Terry % (Auto) 8.6 (3-14) % Eos % (Auto) 0.1 L (2-4) % Baso % (Auto) 0.4 (0-2) % Neut # (Auto) 9900 H (3340-2871) /uL Lymph # (Auto) 600 L (3960-1623) /uL Terry # (Auto) 1000 H (0-900) /uL Eos # (Auto) 0 (0-450) /uL Baso # (Auto) 0 (0-100) /uL PT 16.3 H (9.4-12.5) SECONDS INR 1.4 H (0.9-1.3) D-Dimer 9853 H (<500) ng/ml Sodium 134 L (137-145) mmol/L Potassium 3.6 (3.4-5.1) mmol/L Chloride 102 (98-107) mmol/L Carbon Dioxide 22 (22-32) mmol/L BUN 13 (7-17) mg/dL Creatinine 0.78 (0.52-1.04) mg/dL Estimated GFR > 60 (>60) mL/min BUN/Creatinine Ratio 16.7 (6-22) Glucose 120 H (80-110) mg/dL Lactate 0.8 (0.7-2.1) mmol/L Calcium 8.9 (8.4-10.2) mg/dL Total Bilirubin 1.2 (0.2-1.3) mg/dL AST 21 (14-36) IU/L ALT 15 (<35) IU/L Alkaline Phosphatase 63 (38-126) U/L Troponin I < 0.012 < 0.012 (0.01-0.034) ng/mL NT-Pro-B Natriuret Pep 299 H (<125) pg/mL Total Protein 7.0 (6.3-8.2) g/dL Albumin 3.8 (3.5-5.0) g/dL Globulin 3.2 (1.7-4.1) g/dL Albumin/Globulin Ratio 1.2 (1.0-2.8) SARS-CoV-2 (PCR) Negative (Negative) Urine Dip Bedside Urine Glucose Negative Bedside Urine Bilirubin - Negative Bedside Urine Ketone +/- 5 Urine Specific [place] 1.025 Bedside Urine Occult Blood +/- Bedside Urine pH 6.0 Bedside Urine Protein + 30 Bedside Urine Urobilinogen - Negative Bedside Urine Nitrite - Negative Bedside Urine Leukocytes - Negative Esterase Critical Care Time <Tamar Griffin MD - Last Filed: 08/25/23 18:33> Critical Care Time Critical Care Time: Yes Total Critical Care Time: 42 Attestation: Saddle PE requiring transfer for thrombectomy Discharge Plan Departure Patient Disposition: [facility] Clinical Impression: Pulmonary embolism Qualifiers: Pulmonary embolism type: saddle Chronicity: acute Acute cor pulmonale presence: without acute cor pulmonale Qualified Code(s): I26.92 - Saddle embolus of pulmonary artery without acute cor pulmonale Prescriptions: No Action levothyroxine 13 mcg capsule 88 mcg PO DAILY estradiol 0.01 % (0.1 mg/gram) cream vaginal Mounjaro 5 mg/0.5 mL pen injector SUBCUT Patient Comments: [NO ORIGINAL SIG] benzonatate 100 mg capsule 200 mg PO BID PRN (Reason: cough) Qty: 20 0RF levothyroxine 88 mcg tablet 88 mcg PO DAILY Referrals: Ingrid Zazueta DO [Primary Care Provider] -
[2023-08-24 20:01] LABS: D Dimer 9853 ng/ml (<500)
[2023-08-24 20:04] LABS: NT-proBNP (BNP-Adult 18+) 299 pg/mL (<125); Troponin I < 0.012 ng/mL (0.01-0.034)
--- NOTE | 2023-08-24 20:22 | DI.CT.S_ITS ---
PROCEDURE: CT ANGIO CHEST PE PROTOCOL INDICATIONS: DYSPNEA, TACHYCARDIA, DVT IN LEG TECHNIQUE: After the administration of intravenous contrast, 2 mm thick sections acquired from the pulmonary apices to the posterior costophrenic angles. 3-dimensional maximum intensity projection (MIP) coronal and sagittal reformats were then acquired through the thorax. For radiation dose reduction, the following was used: automated exposure control, adjustment of mA and/or kV according to patient size. COMPARISON: Same-day left lower extremity venous duplex 08/24/2023. FINDINGS: Image quality: Diagnostic. Pulmonary arteries: Pulmonary arteries are normal in size. There is a central embolus extending in the left main pulmonary artery and extending into the left upper lobe segmental and left interlobar artery with extension into the subsegmental arteries on the left. There is a pulmonary embolus at the distal aspect of the right main pulmonary artery extending into the right middle and right lower lobe segmental branches. No evidence of right heart strain. Lower Neck: No enlarged lymph nodes. Thyroid: No thyroid nodules which require sonographic follow up, per consensus guidelines. Axillae: No enlarged lymph nodes. Chest Wall: Unremarkable. Bones: Unremarkable. Lungs and Pleura: No pneumothorax or pleural effusions. There is right lower lobe consolidation with ground-glass opacity which may represent developing infarct. Heart: Heart size is normal. No pericardial effusion. Mild coronary artery calcifications. No evidence of right heart strain. Thoracic Vessels: No aortic aneurysm. Mediastinum and Eunice: No enlarged lymph nodes. Esophagus: No wall thickening. No hiatal hernia. Upper Abdomen: Fluid attenuating hepatic hypodensities consistent with simple cysts. Visualized upper abdomen solid organs and bowel loops appear normal. IMPRESSION: Bilateral pulmonary emboli. No evidence of right heart strain. Possible developing right lower lobe infarct. No cavitation. Findings of bilateral pulmonary emboli were discussed with ordering ED provider at 9:00 p.m. on 08/24/2023 Approved by: Nikia Lackey M.D. on 08/24/2023 at 21:30
[2023-08-24] MEDS: HEPARIN DRIP 25,000 UNIT/500 ML IV.SOLN 22.535 UNIT IV (20:59)
[2023-08-24] MEDS: HEPARIN 5,000 UNIT/ML VIAL 7500 UNIT IV (20:59)
[2023-08-24] MEDS: ENOXAPARIN 40 MG/0.4 ML SYRINGE 140 MG SUBCUT (22:58)
--- NOTE | 2023-08-24 23:33 | PC.NURSE ---
Spoke with transfer center [facility]. Accepted by Hospitalist Dr. Justyn Torres. Pt will most likely be at [facility] over night until discharges during dayshift 08/25/23
[2023-08-25] VITALS (45 sets, daily range): BP systolic 88–132; BP diastolic 51–78; PULSE 91–105; RESP 15–30; O2SAT 90–98
[2023-08-25 06:17] LABS: Troponin I < 0.012 ng/mL (0.01-0.034)
[2023-08-25] MEDS: ENOXAPARIN 100 MG/ML SYRINGE 90 MG SUBCUT (09:39)
[2023-08-25] MEDS: LEVOTHYROXINE 88 MCG TABLET PO (13:45)
--- NOTE | 2023-08-25 13:51 | PC.NURSE ---
Spoke with Aruna at [facility] they are currently having IR issues those issues might be fixed later on today however that does not mean pt has guarantee placement but they are waitlisted. Spoke with Tahira at [facility] they currently have no CCU beds Spoke with Celina at and they are currently looking into it. Pt is accepted at [facility] spoke to Betzaida and pt is 3rd on the list I did let her know pt is NPO.
[2023-08-25 14:39] LABS: COVID19 -Nasal RAPID Negative (Negative)
--- NOTE | 2023-08-25 14:49 | DI.ECHO.S_ITS ---
[facility] +---------+ : : [address] : [place] : : : : [id number] : : : : Phone: [phone] Echocardiogram Report + + :Name: FUNMILAYO GUIDRY Study Date: 08/25/2023 Height: 69 in : :[facility] ReadingLocation: Weight: 207 lb : : Gender: Female BSA: 2.1 m2 : :: 1960 Age: 63 yrs BP: 104/71 mmHg: :Reason For Study: PULMONARY EMBOLISM : :Ordering Physician: BLANCO, : :RIC Performed By: Lilo Win : :Referring: RIC SIMEON : + + Interpretation Summary The ejection fraction is estimated to be 55-60%. The right ventricle is normal in size and function. There is trace tricuspid regurgitation. Pulmonary artery pressures cannot be estimated because of the lack of a measurable TR jet velocity. Procedure: Images were not obtained from all of the standard acoustic windows due to the limited scope of the study. The study quality was technically good. There is no prior echocardiogram noted for this patient. The patient was in sinus rhythm with heart rates between 91-96 bpm during the exam. Left Ventricle: The left ventricle is normal in size and wall thickness. The ejection fraction is estimated to be 55-60%. Right Ventricle: The right ventricle is normal in size and function. Atria: Both atria are normal in size. Mitral Valve: The mitral valve is normal. Aortic Valve: The aortic valve is trileaflet. The aortic valve opens well. There is no aortic valve stenosis. Tricuspid Valve: The tricuspid valve is normal in structure and function. There is trace tricuspid regurgitation. Pulmonary artery pressures cannot be estimated because of the lack of a measurable TR jet velocity. Great Vessels: The inferior vena cava was not well visualized. Pericardium/ Pleura There is no pericardial effusion. There is no pleural effusion. MMode/2D Measurements & Calculations LVIDd: 5.0 cm RVD1 (basal): 3.3 cm LVIDs: 3.3 cm RVD2 (mid): 3.1 cm FS: 34.7 % TAPSE: 2.0 cm IVSd: 0.86 cm LVPWd: 1.00 cm LV resendiz. diameter/BSA (cm/m^2): 2.4 LV sys. diameter/BSA (cm/m^2): 1.6 Reading Physician:04:44 PM
[2023-08-25] MEDS: SODIUM CHLORIDE 0.9% 1,000 ML 500 ML IV (17:24)
== END 2023-08-25 17:26 | disposition short-term general hospital (02) ==
PROVIDERS: Emergency Medicine; Emergency Provider Emergency Medicine; PCP Obstetrics & Gynecology
DX: I26.92 Saddle embolus of pulmonary artery without acute cor pulmonale (principal); I82.812 Embolism and thrombosis of superficial veins of left lower extremity; R05.1 Acute cough
CPT/HCPCS: 0241U; 36415; 71275; 80053; 81003; 83605; 83880; 84484; 85025; 85379; 85610; 87635; 93005; 93010; 93307; 93971; 96365; 96372; 96376; 99285; 99291; J1644; J1650; Q9967

== ENCOUNTER 2023-09-17 19:43 | Emergency (ER) | payer OTHER, SELFPAY ==
[2023-09-17 19:47] VITALS: BP 127/62; PULSE 76; RESP 14; TEMP 36.1; O2SAT 97; BMI 29.9
--- NOTE | 2023-09-17 19:52 | DI.US.S_ITS ---
PROCEDURE: US PERIP VENOUS LOW EXTREM LT INDICATIONS: KNOWN DVT; INCREASING EDEMA TECHNIQUE: Real-time imaging, as well as color and pulse Doppler interrogation, were performed of the lower extremity deep veins from the inguinal ligament to the popliteal fossa, with documentation of the visualized calf veins. COMPARISON: [facility], [facility] VENOUS LOW EXTREM LT, 08/24/2023, 20:06. FINDINGS: Intraluminal filling defects are noted within mid to distal right superficial femoral vein and popliteal vein. Filling defects are also noted within 2 branches of posterior tibial vein in left calf region. IMPRESSION: Deep venous thrombosis involving left lower extremity veins as described above. Dictated by: William Fontenot M.D. on 09/17/2023 at 21:35 Approved by: William Fontenot M.D. on 09/17/2023 at 21:36
--- NOTE | 2023-09-17 23:01 | ED.EXTPRO ---
HPI - Extremity Problem General Chief complaint: Extremity Problem,Nontraumatic Stated complaint: blood clot lt leg, pain Time Seen by Provider: 09/17/23 21:57 Mode of arrival: Ambulatory History of Present Illness HPI Narrative: 63-year-old female with recent history (08/24/23) of DVT and saddle pulmonary embolus requiring interventional thrombectomy at [facility] presents by private vehicle from home for left lower extremity swelling and pain. Patient states that the interventional team at [facility] elected to leave the extremity DVT in place and not intervene due to potential risks from her pulmonary embolus. She has been compliant with her Eliquis and has not missed any doses. She has cardiology follow up next week at [facility], but when her leg began to swell and become more painful she decided to present for evaluation. Denies chest pain, shortness of breath, fast heart rate, other complaints. Related Data Home Medications Medication Instructions Recorded Confirmed levothyroxine 13 mcg capsule 88 mcg PO DAILY 05/01/23 08/24/23 estradiol 0.01% (0.1 mg/gram) vaginal 08/24/23 08/24/23 vaginal cream tirzepatide 5 mg/0.5 mL mg SUBCUT 08/24/23 08/24/23 subcutaneous pen injector (Mounjaro) levothyroxine 88 mcg tablet 88 mcg PO DAILY 08/25/23 08/25/23 Previous Rx's Medication Instructions Recorded benzonatate 100 mg capsule 200 mg (2 x 100 mg) PO BID PRN 08/24/23 cough #20 caps dabigatran etexilate 150 mg capsule 150 mg PO BID #60 caps 09/18/23 Allergies Allergy/AdvReac Type Severity Reaction Status Date / Time No Known Drug Allergies Allergy Verified 09/17/23 19:46 Review of Systems Review of Systems Narrative: Negative except as noted above Patient History Social History Smoking Status: Never smoker Smoking Status: Never smoker alcohol intake frequency: holidays/special occasions only Substance Use Type: does not use Exam Initial Vital Signs Initial Vital Signs: Vital Signs Temperature 97.0 F L 09/17/23 19:47 Pulse Rate 76 09/17/23 19:47 Respiratory Rate 14 09/17/23 19:47 Blood Pressure 127/62 09/17/23 19:47 Pulse Oximetry 97 09/17/23 19:47 Oxygen Delivery Method Room Air 09/17/23 19:47 Const: Awake, alert, no acute distress, nontoxic appearing Cardiac: regular rate, regular rhythm RESP: unlabored, clear bilaterally, no wheezing GI: Atraumatic, soft, nontender, nondistended, no rebound, no guarding MSK: Left lower extremity greater than right lower extremity, sensation intact and equal bilaterally, DP pulses 2+ bilaterally Skin: Warm, Dry, intact, no rashes Neuro: AO x3, CN II-XII grossly intact, moves all extremities Course Orders Ordered: Discontinued Medications Dabigatran (Dabigatran 75 Mg Capsule) 150 mg PO NOW ONE Stop: 09/17/23 23:50 Last Admin: 09/17/23 23:57 Dose: 150 mg Documented By: BRIANNE Vital Signs Vital signs: Vital Signs - 8 hr 09/17/23 19:47 09/17/23 23:25 Temperature 97.0 F L Pulse Rate 76 77 Respiratory Rate 14 22 Blood Pressure 127/62 108/57 L Pulse Oximetry 97 97 Oxygen Delivery Method Room Air Room Air MDM - Extremity (Nontraumatic) Differential Diagnosis Differential diagnosis: Likely deep venous thrombosis of upper extremity, lower extremity edema and deep vein thrombosis of lower extremity Imaging Data US - DVT: My Impression: PROCEDURE: US PERIP VENOUS LOW EXTREM LT INDICATIONS: KNOWN DVT; INCREASING EDEMA TECHNIQUE: Real-time imaging, as well as color and pulse Doppler interrogation, were performed of the lower extremity deep veins from the inguinal ligament to the popliteal fossa, with documentation of the visualized calf veins. COMPARISON: [facility], PERIP VENOUS LOW EXTREM LT, 08/24/2023, 20:06. FINDINGS: Intraluminal filling defects are noted within mid to distal right superficial femoral vein and popliteal vein. Filling defects are also noted within 2 branches of posterior tibial vein in left calf region. IMPRESSION: Deep venous thrombosis involving left lower extremity veins as described above. Dictated by: William Fontenot M.D. on 09/17/2023 at 21:35 Approved by: William Fontenot M.D. on 09/17/2023 at 21:36 MDM Narrative Medical decision making narrative: Left lower extremity swelling, patient has known DVT but she was concerned that it may have gotten larger and may move to her lungs and she will have another pulmonary embolism. She has been compliant with her eliquis. Neurovascularly intact. will repeat DVT scan. Persistent DVT in left lower extremity. I discussed the results with Dr. Fontenot of Radiology, who stated that some of the old clot is now lessened and chronic in appearance, however there do appear to be small areas of new DVT in the peripheral branches. Since patient has been on Eliquis for several weeks and I do believe she was compliant it was unusual that she would have new DVT despite anticoagulation. Call placed to patient's interventional team at [facility]. Discussed patient's DVT findings with Dr. Bello of interventional cardiology. States it was unusual an unexpected for patient to have new clot burden despite compliance with anticoagulation. Patient will need to be followed up with Heme-Onc for hypercoagulable workup. In the meantime with normal vitals does not recommend hospitalization or transfer. Recommends switching from Eliquis to Pradaxa since it has a different mechanism of action. Patient and has been advised of Radiology and Cardiology results as well as cardiology recommendations. Initial dose of Pradaxa given in the emergency department and medication sent to pharmacy of choice. Strict ED return precautions discussed at bedside. Patient states that she would prefer to follow up with Hematology at [facility] to have her care centralized and declines a local referral at this time. Discharge Plan Departure Patient Disposition: Home Clinical Impression: DVT (deep venous thrombosis) Instructions: DI for Deep Vein Thrombosis Activity Restrictions/Additional Instructions: After discussing with Cardiology at [facility] we are changing your blood thinning medication to Pradaxa. This prescription will be sent to your pharmacy. Follow up as scheduled with Cardiology at [facility] next week. It was recommended by cardiology that you follow up with the inventory coordinator to see why you are developing blood clots. If you notice chest pain, shortness of breath, elevated heart rate please return to the emergency department for evaluation. Prescriptions: New dabigatran etexilate 150 mg capsule 150 mg PO BID Qty: 60 0RF No Action levothyroxine 13 mcg capsule 88 mcg PO DAILY estradiol 0.01 % (0.1 mg/gram) cream vaginal Mounjaro 5 mg/0.5 mL pen injector SUBCUT Patient Comments: [NO ORIGINAL SIG] benzonatate 100 mg capsule 200 mg PO BID PRN (Reason: cough) Qty: 20 0RF levothyroxine 88 mcg tablet 88 mcg PO DAILY Referrals: Ingrid Zazueta DO [Primary Care Provider] - Stand Alone Forms: Patient Portal/API
[2023-09-17 23:25] VITALS: BP 108/57; PULSE 77; RESP 22; O2SAT 97
[2023-09-17] MEDS: DABIGATRAN 75 MG CAPSULE 150 MG PO (23:57)
== END 2023-09-18 00:07 | disposition home or self-care (01) ==
PROVIDERS: Emergency Provider Emergency Medicine; PCP Obstetrics & Gynecology
DX: I82.402 Acute embolism and thrombosis of unspecified deep veins of left lower extremity (principal); Z79.01 Long term (current) use of anticoagulants
CPT/HCPCS: 93971; 99283

== ENCOUNTER → 2023-12-23 18:15 | Outpatient (CLI) | payer OTHER, SELFPAY | PROVIDERS: PCP Obstetrics & Gynecology; Visit Provider Nurse Practitioner Family | DX: R30.0 Dysuria (principal) | CPT/HCPCS: 87077; 87086; 87186 ==

== ENCOUNTER 2024-04-24 10:09 | Emergency (ER) | payer OTHER, SELFPAY ==
[2024-04-24] VITALS (11 sets, daily range): BP systolic 102–135; BP diastolic 60–101; PULSE 59–72; RESP 18; TEMP 36.7; O2SAT 91–98; BMI 28.5
--- NOTE | 2024-04-24 10:24 | ED.ABDPAIN ---
HPI - Abdominal Pain General Chief Complaint: Urogenital-Female Stated Complaint: vaginal pain/infec? poss kidney stone? Time Seen by Provider: 04/24/24 10:22 History of Present Illness HPI narrative: Patient is a 64-year-old female history of DVT saddle PE requiring thrombectomy on Pradaxa, hypothyroidism hyperlipidemia diabetes presents to the ED from home for evaluation of multiple complaints. States that she has been suffering from vaginal pain ongoing and intermittent for the past 2 weeks is currently on Cipro for this. States that she has a history of vaginal pain that she sees an forest aide for but this is ?different she is also complaining of bilateral flank pain right side worse than left therefore is concerned she might be having a kidney infection. Denies any other symptoms at this time. Related Data Home Medications Medication Instructions Recorded Confirmed levothyroxine 13 mcg capsule 88 mcg PO DAILY 05/01/23 12/23/23 estradiol 0.01% (0.1 mg/gram) vaginal 08/24/23 12/23/23 vaginal cream tirzepatide 5 mg/0.5 mL mg SUBCUT 08/24/23 12/23/23 subcutaneous pen injector (Mounjaro) levothyroxine 88 mcg tablet 88 mcg PO DAILY 08/25/23 12/23/23 apixaban 5 mg tablet (Eliquis) 5 mg PO BID 12/23/23 12/23/23 phenazopyridine 200 mg tablet 200 mg PO 3XD 12/23/23 12/23/23 rifaximin 550 mg tablet (Xifaxan) 550 mg PO 3XD 12/23/23 12/23/23 rosuvastatin 40 mg tablet 40 mg PO DAILY 12/23/23 12/23/23 semaglutide 1 mg/dose (4 mg/3 mL) mg SUBCUT 12/23/23 12/23/23 subcutaneous pen injector (Ozempic) semaglutide 2 mg/dose (8 mg/3 mL) mg SUBCUT 12/23/23 12/23/23 subcutaneous pen injector (Ozempic) tirzepatide 7.5 mg/0.5 mL mg SUBCUT 12/23/23 12/23/23 subcutaneous pen injector (Mounjaro) Previous Rx's Medication Instructions Recorded benzonatate 100 mg capsule 200 mg (2 x 100 mg) PO BID PRN 08/24/23 cough #20 caps dabigatran etexilate 150 mg capsule 150 mg PO BID #60 caps 09/18/23 cefuroxime axetil 500 mg tablet 500 mg PO BID 7 days #14 tabs 04/24/24 valacyclovir 500 mg tablet 1,000 mg (2 x 500 mg) PO BID 10 04/24/24 days #40 tabs Allergies Allergy/AdvReac Type Severity Reaction Status Date / Time No Known Drug Allergies Allergy Verified 12/23/23 18:09 Review of Systems Review of Systems Narrative: General: Denies fever, chills, weight loss HEENT: Denies headache, eye drainage, eye irritation, head trauma, sore throat, voice change Cardiovascular: Denies any chest pain, palpitations, shortness of breath, tachycardia Respiratory: Denies any shortness of breath, cough, wheeze, stridor GI/: Denies any abdominal pain, nausea, vomiting, diarrhea, bright red blood per rectum, melanotic stools, urinary frequency, urinary retention, dysuria, hematuria, positive vaginal pain, positive flank pain MSK: Denies any joint pain, muscle pains, swelling Skin: Denies any rashes, lesions, discoloration Neuro: Denies any headache, lightheadedness, dizziness, fainting, weakness Psych: Denies SI/HI Patient History Social History Smoking Status: Never smoker Smoking Status: Never smoker alcohol intake frequency: holidays/special occasions only Substance Use Type: does not use Exam Narrative Exam Narrative: General: Cooperative, comfortable, well-developed, not in acute distress HEENT: Normocephalic, atraumatic, PERRLA, normal sclera, eyelids normal, Neck: Active full range of motion, atraumatic Chest: Normal to inspection, negative crepitus, no overlying erythema ecchymosis Respiratory: Normal respiratory effort, not in acute respiratory distress, clear to auscultation bilaterally negative cough, wheeze, tachypnea, rhonchi, rales Cardiology: Regular rate rhythm negative gallop, murmur, rubs GI/: Normal to inspection, soft, nonrigid, no tenderness to palpation, exam (nurse Jaiden present as informal waiter/waitress), there are no obvious ulcerations or lesions to the anterior aspect of the vagina, there was significant amount of pain upon insertion of the speculum, there was some discharge noted but no cervical motion tenderness no obvious lesions within the vaginal vault itself no bleeding MSK: Full range of active range of motion of all 4 extremities, atraumatic Skin: No rashes lesions noted Neuro: Alert awake oriented x3, moves all 4 extremities spontaneously, cranial nerves intact, able to answer all questions appropriately follows commands appropriately Psych: Cooperative, negative suicidal or homicidal ideations Initial Vital Signs Initial Vital Signs: Vital Signs Pulse Rate 72 04/24/24 10:22 Pulse Oximetry 95 04/24/24 10:22 Course Orders Ordered: ED Orders 04/24/24 10:28 CT abdomen pelvis wo con Stat 04/24/24 10:46 Genital Culture Stat 04/24/24 10:50 Chlamydia Gonorrhea PCR -URINE Stat Urinalysis and Microscopic Stat Wet Prep Tric BV Natty Stat 04/24/24 11:11 Complete Blood Count AUTO DIFF Stat Comprehensive Metabolic Panel Stat Lipase Stat Discontinued Medications Cefuroxime Axetil (Cefuroxime 250 Mg Tablet) 500 mg PO NOW ONE Stop: 04/24/24 13:02 Ketorolac Tromethamine (Ketorolac 30 Mg/Ml Vial) 30 mg IV NOW ONE Stop: 04/24/24 12:43 Last Admin: 04/24/24 13:01 Dose: 30 mg Documented By: ADRIANNA Morphine Sulfate (Morphine 4 Mg/Ml Inj) 4 mg IV NOW ONE Stop: 04/24/24 10:42 Last Admin: 04/24/24 11:06 Dose: 4 mg Documented By: ADRIANNA Valacyclovir HCl (Valacyclovir 500 Mg Tablet) 1,000 mg PO NOW ONE Stop: 04/24/24 13:02 Vital Signs Vital signs: Vital Signs - 8 hr 04/24/24 10:22 04/24/24 10:23 04/24/24 10:23 Temperature Pulse Rate 72 66 Respiratory Rate Blood Pressure 126/62 Pulse Oximetry 95 97 Oxygen Delivery Method 04/24/24 10:26 04/24/24 11:17 04/24/24 11:18 Temperature 98.1 F Pulse Rate 66 63 Respiratory Rate 18 Blood Pressure 126/62 Pulse Oximetry 97 97 97 Oxygen Delivery Method Room Air 04/24/24 11:18 Temperature Pulse Rate Respiratory Rate Blood Pressure 111/70 Pulse Oximetry Oxygen Delivery Method MDM - Abdominal Pain Differential Diagnosis Differential diagnosis: Likely abdominal pain, calculus of kidney and other (Herpes, electrolyte abnormality,) Lab Data 04/24/24 11:11 04/24/24 11:11 Labs: Lab Results 04/24/24 04/24/24 Range/Units 10:50 11:11 WBC 3.4 L (4.5-11.0) X10^3/uL RBC 4.47 (4.0-5.2) X10^6/uL Hgb 14.3 (12.0-16.0) g/dL Hct 42.2 (36-46) % MCV 94.4 (80-100) fL MCH 32.0 (26-34) PG MCHC 33.9 (30-36) % RDW 13.0 (11.6-14.8) % Plt Count 139 L (150-400) X10^3/uL Neut % (Auto) 68.7 (50-75) % Lymph % (Auto) 17.1 L (25-40) % [place] % (Auto) 9.7 (3-14) % Eos % (Auto) 4.1 H (2-4) % Baso % (Auto) 0.4 (0-2) % Neut # (Auto) 2300 (4204-6891) /uL Lymph # (Auto) 600 L (6049-6872) /uL [place] # (Auto) 300 (0-900) /uL Eos # (Auto) 100 (0-450) /uL Baso # (Auto) 0 (0-100) /uL Sodium 136 L (137-145) mmol/L Potassium 4.3 (3.4-5.1) mmol/L Chloride 106 (98-107) mmol/L Carbon Dioxide 25 (22-32) mmol/L BUN 20 H (7-17) mg/dL Creatinine 1.01 (0.52-1.04) mg/dL Estimated GFR > 60 (>60) mL/min BUN/Creatinine Ratio 19.8 (6-22) Glucose 86 (80-110) mg/dL Calcium 9.3 (8.4-10.2) mg/dL Total Bilirubin 0.8 (0.2-1.3) mg/dL AST 23 (14-36) IU/L ALT 12 (<35) IU/L Alkaline Phosphatase 34 L (38-126) U/L Total Protein 6.7 (6.3-8.2) g/dL Albumin 4.1 (3.5-5.0) g/dL Globulin 2.6 (1.7-4.1) g/dL Albumin/Globulin Ratio 1.6 (1.0-2.8) Lipase 88 (23-300) U/L Urine Color Yellow Urine Appearance Sl cloudy Urine pH 5.5 (4.5-8.0) Ur Specific [place] >=1.030 H (1.000-1.035) Urine Protein Trace H (Negative) Urine Glucose (UA) Trace H (Negative) g/dL Urine Ketones Negative (NEGATIVE) Urine Occult Blood Trace-intact (Negative) Urine Nitrate Positive H (Negative) Urine Bilirubin Negative (NEGATIVE) Urine Urobilinogen 1.0 (0.2) E.U./dL Ur Leukocyte Esterase 2+ H (NEGATIVE) Urine RBC 5-10/hpf H (0-5/HPF) Urine WBC 30-100/hpf H (0-5/HPF) Ur Squamous Epith Cells 5-10 /hpf H (0-5/HPF) Calcium Oxalate Crystal Few H Urine Bacteria Many (>30) H (None) Ur Culture Indicated? Cult not indicated Vol Urine Centrifuged Low vol <10ml (spun) A Ur Chlamydia DNA (PCR) Not detected N gonorrhoeae DNA (PCR) Not detected MDM Narrative Medical decision making narrative: Patient is a 64-year-old female history of PE DVT on Pradaxa, hypothyroidism, diabetes presents to the ED for evaluation of persistent vaginal pain, ongoing and persistent for the past 2 or so weeks is currently on ciprofloxacin for this. Has also been experiencing some bilateral flank pain right side worse than left therefore was concerned she might be having a kidney infection or stone. On exam patient without any obvious lesions to the exterior vagina, there was some pain with insertion of the speculum but there were no lesions or bleeding noted within the vaginal vault, no bleeding, white discharge was noted. Did send for cultures, wet prep swab with following without signs of clue cells, yeast or trich. Urine analysis does show acute urinary tract infection. Patient will be changed to cefuroxime told to follow up with her culture. We will also prophylactically treat for herpes with 1 g valacyclovir. Patient was instructed follow up with her OBGYN and primary care doctor in outpatient setting for discharge home with outpatient follow up Discharge Plan Departure Patient Disposition: Home Clinical Impression: Urinary tract infection, Vaginal pain Activity Restrictions/Additional Instructions: Please follow-up with your OBGYN and primary care doctor Please read the discharge instructions sheet carefully and bring all papers to all doctor follow-up visits, as it may contain information that your doctor may want to see. Disease processes change and evolve, if your symptoms worsen or if you develop any new symptoms that are concerning to you please return for evaluation. Your evaluation today does not show any evidence of any life-threatening/serious illnesses requiring admission to the hospital or surgery. Please follow-up with your doctor for re-evaluation in approximately 1 day. Seek immediate medical attention for any worrisome symptoms. Prescriptions: New cefuroxime axetil 500 mg tablet 500 mg PO BID 7 Days Qty: 14 0RF valacyclovir 500 mg tablet 1,000 mg PO BID 10 Days Qty: 40 0RF No Action levothyroxine 13 mcg capsule 88 mcg PO DAILY phenazopyridine 200 mg tablet 200 mg PO 3XD Xifaxan 550 mg tablet 550 mg PO 3XD Mounjaro 7.5 mg/0.5 mL pen injector SUBCUT Patient Comments: [NO ORIGINAL SIG] Ozempic 2 mg/dose (8 mg/3 mL) pen injector SUBCUT Patient Comments: [NO ORIGINAL SIG] Ozempic 1 mg/dose (4 mg/3 mL) pen injector SUBCUT Patient Comments: [NO ORIGINAL SIG] rosuvastatin 40 mg tablet 40 mg PO DAILY Eliquis 5 mg tablet 5 mg PO BID estradiol 0.01 % (0.1 mg/gram) cream vaginal Mounjaro 5 mg/0.5 mL pen injector SUBCUT Patient Comments: [NO ORIGINAL SIG] benzonatate 100 mg capsule 200 mg PO BID PRN (Reason: cough) Qty: 20 0RF levothyroxine 88 mcg tablet 88 mcg PO DAILY dabigatran etexilate 150 mg capsule 150 mg PO BID Qty: 60 0RF Referrals: Ingrid Zazueta DO [Primary Care Provider] - Stand Alone Forms: Patient Portal/API
--- NOTE | 2024-04-24 10:28 | DI.CT.S_ITS ---
PROCEDURE: CT ABDOMEN PELVIS WO CON INDICATIONS: flank pain TECHNIQUE: Axial sections were acquired from the lung bases to the pubic symphysis. Coronal and sagittal reformats were performed. For radiation dose reduction, the following was used: automated exposure control, adjustment of mA and/or kV according to patient size. COMPARISON: None. FINDINGS: Image quality: Diagnostic. Lower Chest: No significant findings. URINARY: Right Kidney: No stones or hydronephrosis. Right Ureter: No hydroureter. Left Kidney: There is a 2 mm nonobstructing left-sided kidney stone. No hydronephrosis. Left Ureter: No hydroureter. Bladder: Normal wall thickness. No stones. ABDOMEN: Liver: No contour-deforming solid mass. Water density liver cysts are seen. Gallbladder: Removed. Biliary ducts: No biliary dilation. Pancreas: No ductal dilation. Spleen: Size is within normal limits. Adrenal Glands: No adrenal nodules. Stomach and Bowel: Normal colonic caliber, without significant wall thickening. The cecum is high-riding. The colon is tortuous. Mild distal colonic diverticulosis, without findings of active diverticulitis. A normal appendix is noted. No dilated loops of small bowel are seen. Peritoneum: No abnormal intraperitoneal fluid. No free air. Ventral Wall: No hernia. Abdominal Nodes: No enlarged retroperitoneal or mesenteric lymph nodes. Vessels: Aorta and inferior vena cava are normal in size. PELVIS: Pelvic Organs: This patient is status post hysterectomy. No adnexal masses are seen. No focal abnormality of the vagina is seen. Pelvic Nodes: Unremarkable. Miscellaneous: No inguinal hernias are seen. No significant abnormality of the perineum can be seen. Bones: Age-appropriate bony degenerative changes are seen. IMPRESSION: No obstructing stones or hydronephrosis. 2 mm nonobstructing left-sided kidney stone noted. Status post hysterectomy, without a focal pelvic abnormality. No focal abnormality of the vagina can be seen. No significant abnormality of the perineum is seen. Additional findings: Water density liver cysts Cholecystectomy Tortuous colon Normal appendix Diverticulosis, without active diverticulitis Dictated by: Chauncey Klein M.D. on 04/24/2024 at 10:20 Approved by: Chauncey Klein M.D. on 04/24/2024 at 10:25
[2024-04-24] MEDS: MORPHINE 4 MG/ML INJ IV (11:06)
[2024-04-24 11:17] LABS: Add Manual Diff / Slide Review NO; Basophils Absolute Auto 0 /uL (0-100); Basophils Percent Auto 0.4 % (0-2); Eosinophils Absolute Auto 100 /uL (0-450); Eosinophils Percent Auto 4.1 % (2-4); Hematocrit 42.2 % (36-46); Hemoglobin 14.3 g/dL (12.0-16.0); Lymphocytes Absolute Auto 600 /uL (1100-4500); Lymphocytes Percent Auto 17.1 % (25-40); Mean Corpuscular HGB Conc 33.9 % (30-36); Mean Corpuscular Volume 94.4 fL (80-100); Monocytes Absolute Auto 300 /uL (0-900); Monocytes Percent Auto 9.7 % (3-14); Neutrophils Absolute Auto 2300 /uL (1500-7000); Neutrophils Percent Auto 68.7 % (50-75); Platelet Count 139 X10^3/uL (150-400); Red Blood Cell Count 4.47 X10^6/uL (4.0-5.2); White Blood Cell Count 3.4 X10^3/uL (4.5-11.0)
[2024-04-24 11:28] LABS: Alanine Aminotransferase 12 IU/L (<35); Albumin 4.1 g/dL (3.5-5.0); Albumin Globulin Ratio 1.6 (1.0-2.8); Alkaline Phosphatase 34 U/L (38-126); Aspartate Aminotransferase 23 IU/L (14-36); BUN Creatinine Ratio 19.8 (6-22); Bilirubin Total 0.8 mg/dL (0.2-1.3); Blood Urea Nitrogen 20 mg/dL (7-17); Calcium 9.3 mg/dL (8.4-10.2); Carbon Dioxide 25 mmol/L (22-32); Chloride 106 mmol/L (98-107); Estimated Glomerular Filt Rate > 60 mL/min (>60); Globulin 2.6 g/dL (1.7-4.1); Glucose 86 mg/dL (80-110); HEMOLYSIS 43 (0-50); Lipase 88 U/L (23-300); Potassium 4.3 mmol/L (3.4-5.1); Sodium 136 mmol/L (137-145); Total Protein 6.7 g/dL (6.3-8.2)
[2024-04-24 11:38] LABS: Appearance Urine UA SL CLOUDY; Bilirubin Urine UA NEGATIVE (NEGATIVE); Color Urine UA YELLOW; Glucose Urine UA TRACE g/dL (Negative); Ketones Urine UA NEGATIVE (NEGATIVE); Leukocyte Esterase Urine UA 2+ (NEGATIVE); Nitrite Urine UA POSITIVE (Negative); Occult Blood Urine UA TRACE-INTACT (Negative); Protein Urine UA TRACE (Negative); Specific Gravity Urine UA >=1.030 (1.000-1.035)
[2024-04-24 11:40] LABS: pH Urine UA 5.5 (4.5-8.0)
[2024-04-24 11:48] LABS: Bacteria Urine Many (>30); Calcium Oxalate Crystals Urine Few; RBC Urine 5-10/HPF (0-5/HPF); Squamous Epithelial Cell Urine 5-10 /HPF (0-5/HPF); Urine Volume Low Vol <10mL (spun); WBC Urine 30-100/HPF (0-5/HPF)
[2024-04-24 11:49] LABS: Culture Indicated Urine Cult Not Indicated
[2024-04-24 12:35] LABS: Urine N gonorrhoeae NOT DETECTED
[2024-04-24 12:44] LABS: Urine Chlamydia NOT DETECTED
[2024-04-24] MEDS: KETOROLAC 30 MG/ML VIAL IV (13:01)
[2024-04-24] MEDS: valACYclovir 500 MG TABLET 1000 MG PO (13:14)
[2024-04-24] MEDS: cefUROXime 250 MG TABLET 500 MG PO (13:14)
== END 2024-04-24 13:26 | disposition home or self-care (01) ==
PROVIDERS: Emergency Provider Student in an Organized Health Care Education/Training Program; PCP Obstetrics & Gynecology
DX: N39.0 Urinary tract infection, site not specified (principal); R10.2 Pelvic and perineal pain; Z79.01 Long term (current) use of anticoagulants; Z79.899 Other long term (current) drug therapy
CPT/HCPCS: 36415; 74176; 80053; 81001; 83690; 85025; 87070; 87205; 87210; 87491; 87591; 96374; 96375; 99284; J1885; J2270

== ENCOUNTER 2024-12-20 15:45 | Emergency (ER) | payer OTHER, SELFPAY ==
[2024-12-20 15:52] VITALS: BP 113/73; PULSE 83; RESP 18; TEMP 37; O2SAT 95; BMI 28.3
--- NOTE | 2024-12-20 15:57 | DI.US.S_ITS ---
PROCEDURE: [facility] VENOUS LOW EXTREM LT INDICATIONS: PAIN AND SWELLING TECHNIQUE: Real-time imaging, as well as color and pulse Doppler interrogation, were performed of the lower extremity deep veins from the inguinal ligament to the popliteal fossa, with documentation of the visualized calf veins. COMPARISON: [facility], [place], [facility] VENOUS LOW EXTREM LT, 09/17/2023, 20:45. FINDINGS: A small amount of deep venous thrombosis can be seen, with nonocclusive thrombus within the distal femoral vein and the popliteal vein. There is a complex Matias's cyst seen without abnormal vascularity measuring 4.2 x 4.9 x 2.5 cm. IMPRESSION: Small volume of nonocclusive deep venous thrombosis seen distally, which is regarded to be chronic and improved compared to the prior ultrasound. Dictated by: Chauncey Klein M.D. on 12/20/2024 at 16:11 Approved by: Chauncey Klein M.D. on 12/20/2024 at 16:15
--- NOTE | 2024-12-20 16:50 | ED.EXTPRO ---
HPI - Extremity Problem <Joey Rodgers PA-C - Last Filed: 12/20/24 18:32> General Chief complaint: Extremity Problem,Nontraumatic Stated complaint: sent by PCP possible blood clot Time Seen by Provider: 12/20/24 16:14 Source: patient Mode of arrival: Ambulatory History of Present Illness HPI Narrative: 64-year-old female with past medical history DVT, PE presents to the ED with 3-4 days of left-sided calf pain and pain behind the left knee. Patient denies any injuries or trauma. Patient does have a history of DVTs in that left lower leg which led to a PE. Patient had a thrombectomy to address the PE. Patient was initially on Eliquis and and then Pradaxa for a few months, and came off the anticoagulants 4 months ago. Patient does see a residential team leader and a shank tapper. Patient does mentioned that her shank tapper suggested that she continue to stay on anticoagulation, given that she has at an increased risk for further clots. Patient states that there were no findings from the hypercoagulable workup by Hematology. At this time, patient denies any chest pain, shortness of breath, fever, chills, nausea, vomiting, numbness, tingling, weakness, lightheadedness, dizziness, syncope. Related Data Home Medications ?Medication ?Instructions ?Recorded ?Confirmed levothyroxine 13 mcg capsule 88 mcg PO DAILY 05/01/23 12/23/23 estradiol 0.01% (0.1 mg/gram) vaginal 08/24/23 12/23/23 vaginal cream tirzepatide 5 mg/0.5 mL mg SUBCUT 08/24/23 12/23/23 subcutaneous pen injector (Mouncharissa) levothyroxine 88 mcg tablet 88 mcg PO DAILY 08/25/23 12/23/23 apixaban 5 mg tablet (Eliquis) 5 mg PO BID 12/23/23 12/23/23 phenazopyridine 200 mg tablet 200 mg PO 3XD 12/23/23 12/23/23 rifaximin 550 mg tablet (Xifaxan) 550 mg PO 3XD 12/23/23 12/23/23 rosuvastatin 40 mg tablet 40 mg PO DAILY 12/23/23 12/23/23 semaglutide 1 mg/dose (4 mg/3 mL) mg SUBCUT 12/23/23 12/23/23 subcutaneous pen injector (Ozempic) semaglutide 2 mg/dose (8 mg/3 mL) mg SUBCUT 12/23/23 12/23/23 subcutaneous pen injector (Ozempic) tirzepatide 7.5 mg/0.5 mL mg SUBCUT 12/23/23 12/23/23 subcutaneous pen injector (Miltonjaro) Previous Rx's ?Medication ?Instructions ?Recorded benzonatate 100 mg capsule 200 mg (2 x 100 mg) PO BID PRN 08/24/23 cough #20 caps dabigatran etexilate 150 mg capsule 150 mg PO BID #60 caps 09/18/23 apixaban 5 mg (74 tabs) tablets in See Rx Instructions PO .COMPLEX 12/20/24 a dose pack (Eliquis DVT-PE Treat #74 ea 30D Start) Allergies Allergy/AdvReac Type Severity Reaction Status Date / Time No Known Drug Allergies Allergy Verified 12/20/24 15:52 Review of Systems <Joey Rodgers PA-C - Last Filed: 12/20/24 18:32> Constitutional Constitutional: Denies chills, Denies fatigue, Denies fever(s), Denies frequent falls, Denies lethargy and Denies weakness Eyes Eyes: Denies change in vision, Denies eye discharge, Denies irritation and Denies loss of vision ENT Ears, Nose, Mouth, and Throat: Denies change in voice, Denies dizziness, Denies neck pain, Denies sore throat and Denies throat swelling Cardiovascular Cardiovascular: Denies chest pain, Denies irregular heart rhythm, Denies lightheadedness, Denies palpitations, Denies dyspnea, Denies dyspnea on exertion and Denies orthopnea Respiratory Respiratory: Denies cough, Denies dyspnea, Denies dyspnea on exertion and Denies wheezing Gastrointestinal Gastrointestinal: Denies abdominal pain, Denies change in bowel habits, Denies diarrhea, Denies nausea and Denies vomiting Musculoskeletal Musculoskeletal: Denies neck pain and Denies numbness Comments: Left-sided calf and back of left knee pain, swelling Integumentary/Breasts Skin/Breast: Denies pruritus, Denies erythema, Denies rash and Denies wounds Neurologic Neurologic: Denies behavioral changes, Denies confusion, Denies dizziness, Denies frequent falls, Denies loss of vision, Denies numbness and Denies weakness Psychiatric Psychiatric: Denies anxiety, Denies behavioral changes, Denies confusion, Denies depression, Denies homicidal ideation and Denies suicidal ideation Endocrine Endocrine: Denies fatigue, Denies flushing and Denies palpitations Hematologic/Lymphatic Hematologic/Lymphatic: Denies easy bruising Allergic/Immunologic Allergic/Immunologic: Denies urticaria, Denies throat swelling and Denies wheezing Patient History <Joey Rodgers PA-C - Last Filed: 12/20/24 18:32> Social History Smoking Status: Never smoker Smoking Status: Never smoker alcohol intake frequency: holidays/special occasions only Exam <Joey Rodgers PA-C - Last Filed: 12/20/24 18:32> Narrative Exam Narrative: Const General:?cooperative, healthy appearing and comfortable HENCT Head:?normal to inspection Ears:?hearing grossly normal bilaterally Nose:?external nose normal Face and sinus:?normal facial exam and sinuses nontender Mouth:?oral mucosae normal Throat:?posterior oropharynx normal Eyes General:?appearance normal, both eyes and all related structures Neck Neck:?normal visual inspection and no lymphadenopathy noted Resp Effort & Inspection:?normal respiratory effort Auscultation:?clear to auscultation bilaterally Cardio Rate:?regular rate Rhythm:?regular rhythm Musculoskeletal There is mild swelling and tenderness of the left calf. There is a palpable Matias cyst in the popliteal region. Skin is intact and normal. Neurovascularly intact. Patient is able to bear weight and walk. Neuro General:?patient alert, patient awake and patient oriented x3 Initial Vital Signs Initial Vital Signs: Vital Signs Temperature 98.6 F 12/20/24 15:52 Pulse Rate 83 12/20/24 15:52 Respiratory Rate 18 12/20/24 15:52 Blood Pressure 113/73 12/20/24 15:52 Pulse Oximetry 95 12/20/24 15:52 Oxygen Delivery Method Room Air 12/20/24 15:52 <Valente Hallman MD - Last Filed: 12/27/24 07:11> Initial Vital Signs Initial Vital Signs: Vital Signs Temperature 98.6 F 12/20/24 15:52 Pulse Rate 83 12/20/24 15:52 Respiratory Rate 18 12/20/24 15:52 Blood Pressure 113/73 12/20/24 15:52 Pulse Oximetry 95 12/20/24 15:52 Oxygen Delivery Method Room Air 12/20/24 15:52 Course <Joey Rodgers PA-C - Last Filed: 12/20/24 18:32> Orders Ordered: ED Orders 12/20/24 15:57 [facility] venous low extrem lt Stat Vital Signs Vital signs: Vital Signs - 8 hr 12/20/24 15:52 12/20/24 17:54 Temperature 98.6 F Pulse Rate 83 70 Respiratory Rate 18 18 Blood Pressure 113/73 105/62 Pulse Oximetry 95 97 Oxygen Delivery Method Room Air Room Air <Valente Hallman MD - Last Filed: 12/27/24 07:11> Orders Ordered: ED Orders 12/20/24 15:57 [facility] venous low extrem lt Stat Vital Signs Vital signs: Vital Signs - 8 hr 12/20/24 15:52 12/20/24 17:54 Temperature 98.6 F Pulse Rate 83 70 Respiratory Rate 18 18 Blood Pressure 113/73 105/62 Pulse Oximetry 95 97 Oxygen Delivery Method Room Air Room Air MDM - Extremity (Nontraumatic) <Joey Rodgers PA-C - Last Filed: 12/20/24 18:32> MDM Narrative Medical decision making narrative: 64-year-old female with past medical history DVT, PE presents to the ED with 3-4 days of left-sided calf pain and pain behind the left knee. DVT study was obtained today which is as follows: PROCEDURE: [facility] VENOUS LOW EXTREM LT INDICATIONS: PAIN AND SWELLING TECHNIQUE: Real-time imaging, as well as color and pulse Doppler interrogation, were performed of the lower extremity deep veins from the inguinal ligament to the popliteal fossa, with documentation of the visualized calf veins. COMPARISON: [facility], [facility] VENOUS LOW EXTREM LT, 09/17/2023, 20:45. FINDINGS: A small amount of deep venous thrombosis can be seen, with nonocclusive thrombus within the distal femoral vein and the popliteal vein. There is a complex Matias's cyst seen without abnormal vascularity measuring 4.2 x 4.9 x 2.5 cm. IMPRESSION: Small volume of nonocclusive deep venous thrombosis seen distally, which is regarded to be chronic and improved compared to the prior ultrasound. Dictated by: Chauncey Klein M.D. on 12/20/2024 at 16:11 Approved by: Chauncey Klein M.D. on 12/20/2024 at 16:15 Discussed findings with patient regarding the Matias cyst which is most likely causing her symptoms today. Recommend supportive care with ibuprofen, ice, rest. Recommend follow-up with PCP and ortho if the popliteal symptoms do not improve over the next few days. Also discussed that the DVT findings from today are chronic and improved from the last ultrasound. Given that patient has been contemplating restarting coagulation, prescription for Eliquis was sent to the pharmacy. Patient agrees to start anticoagulation again after consulting with her shank tapper and residential team leader. ED return precautions were discussed with patient. Patient verbalized understanding. Medical records reviewed: Yes Discharge Plan Departure Patient Disposition: Home Clinical Impression: Matias cyst Qualifiers: Laterality: left Qualified Code(s): M71.22 - Synovial cyst of popliteal space [Matias], left knee Lower leg DVT (deep venous thromboembolism), chronic Qualifiers: Laterality: left Qualified Code(s): I82.5Z2 - Chronic embolism and thrombosis of unspecified deep veins of left distal lower extremity Instructions: DI for Deep Vein Thrombosis, DI for Matias Cyst Activity Restrictions/Additional Instructions: You were evaluated in the ED today for left-sided calf pain. The ultrasound shows a small volume of nonocclusive DVT which is regarded to be chronic and improved compared to the prior ultrasound. The ultrasound also shows a complex Matias cyst. It is likely the Matias cyst that is contributing to your symptoms today. Since you have been monitoring if you should be on chronic anticoagulation, you could restart Eliquis at this time, since you already have the medication. Please start the medication by taking 10 mg twice daily for 7 days, followed by 5 mg twice daily. Please also follow-up with your PCP, residential team leader regarding restarting anticoagulation. For the Matias cyst, treatment is anti-inflammatories such as ibuprofen. You may take 800 mg of ibuprofen with food for pain. You may also add on 1000 mg of Tylenol every 8 hours. You may also apply ice and rest the leg. If the pain behind the knee does not improve over the next several days, it is recommended that you follow-up with your PCP for further evaluation and referrals. Prescriptions: New Eliquis DVT-PE Treat 30D Start 5 mg (74 tabs) tablets,dose pack See Rx Instructions .ROUTE .COMPLEX Qty: 74 0RF Rx Instructions: orally per package directions No Action levothyroxine 13 mcg capsule 88 mcg PO DAILY phenazopyridine 200 mg tablet 200 mg PO 3XD Xifaxan 550 mg tablet 550 mg PO 3XD Mounjaro 7.5 mg/0.5 mL pen injector SUBCUT Patient Comments: [NO ORIGINAL SIG] Ozempic 2 mg/dose (8 mg/3 mL) pen injector SUBCUT Patient Comments: [NO ORIGINAL SIG] Ozempic 1 mg/dose (4 mg/3 mL) pen injector SUBCUT Patient Comments: [NO ORIGINAL SIG] rosuvastatin 40 mg tablet 40 mg PO DAILY Eliquis 5 mg tablet 5 mg PO BID estradiol 0.01 % (0.1 mg/gram) cream vaginal Mounjaro 5 mg/0.5 mL pen injector SUBCUT Patient Comments: [NO ORIGINAL SIG] benzonatate 100 mg capsule 200 mg PO BID PRN (Reason: cough) Qty: 20 0RF levothyroxine 88 mcg tablet 88 mcg PO DAILY dabigatran etexilate 150 mg capsule 150 mg PO BID Qty: 60 0RF Referrals: Ingrid Zazueta DO [Primary Care Provider, HEALTH AND WELLNESS COACH] Stand Alone Forms: Patient Portal/API ED Sign-out <Valente Hallman MD - Last Filed: 12/27/24 07:11> Cosign ED Attending Isaura Attestation: I was immediately available in the department for consultation. ?This documentation has been reviewed and I agree with assessment and plan. Supervised by Valente Hallman MD
[2024-12-20 17:54] VITALS: BP 105/62; PULSE 70; RESP 18; O2SAT 97
== END 2024-12-20 17:55 | disposition home or self-care (01) ==
PROVIDERS: Emergency Provider Student in an Organized Health Care Education/Training Program; PCP Obstetrics & Gynecology
DX: I82.512 Chronic embolism and thrombosis of left femoral vein (principal); I82.532 Chronic embolism and thrombosis of left popliteal vein; M71.22 Synovial cyst of popliteal space [Baker], left knee; Z86.711 Personal history of pulmonary embolism
CPT/HCPCS: 93971; 99281; 99283

== ENCOUNTER → 2025-03-30 11:29 | Outpatient (CLI) | payer MEDICARE, BC, SELFPAY | PROVIDERS: PCP Obstetrics & Gynecology; Referring Provider Internal Medicine; Visit Provider Internal Medicine | DX: I26.99 Other pulmonary embolism without acute cor pulmonale (principal); R06.02 Shortness of breath | CPT/HCPCS: 94060; 94726; 94729 ==